=== PATIENT | female | born 1965 | race Caucasian/White ===

== ENCOUNTER 2017-05-24 06:49 | Observation (INO) | payer BC ==
--- NOTE | 2017-05-24 07:09 | ER Document Report ---
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 She is also having mild shortness of breath during this episode. Patient said the chest tightness started when she was at rest and is constant. She has never had this before. She denies back pain, syncope, leg swelling, hemoptysis, cough, fevers, rash, abdominal pain, nausea, vomiting or radiation of pain. TRAVEL OUTSIDE OF THE [place] IN LAST 30 DAYS: No - Related Data Allergies/Adverse Reactions: No Known Allergies Allergy (Unverified 12/16/11 21:42) Past Medical History - General Information source: Patient - Social History Smoking Status: Unknown if Ever Smoked Family History: CAD, Hypertension - Past Medical History Cardiac Medical History: Reports: Hx Congestive Heart Failure, Hx Heart Attack, Hx Hypercholesterolemia, Hx Hypertension Pulmonary Medical History: Reports: Hx Asthma, Hx COPD, Hx Pneumonia Neurological Medical History: Reports: Hx Migraine, Hx Seizures Musculoskeltal Medical History: Reports Hx Fibromyalgia Psychiatric Medical History: Reports: Hx Depression Past Surgical History: Reports: Hx Section, Hx Orthopedic Surgery, Hx Tubal Ligation - Immunizations Hx Diphtheria, Pertussis, Tetanus Vaccination: Yes Hx Pneumococcal Vaccination: 11/02/13 Review of Systems - Review of Systems Notes: REVIEW OF SYSTEMS: CONSTITUTIONAL: -fevers, -chills EENT: -eye pain, -difficulty swallowing, -nasal congestion CARDIOVASCULAR: +chest pain, -syncope. RESPIRATORY: -cough, +SOB GASTROINTESTINAL: -abdominal pain, -nausea, -vomiting, -diarrhea GENITOURINARY: -dysuria, -hematuria MUSCULOSKELETAL: -back pain, -neck pain SKIN: -rash or skin lesions. HEMATOLOGIC: -easy bruising or bleeding. LYMPHATIC: -swollen, enlarged glands. NEUROLOGICAL: -altered mental status or loss of consciousness, -headache, - neurologic symptoms PSYCHIATRIC: -anxiety, -depression. ALL OTHER SYSTEMS REVIEWED AND NEGATIVE. Physical Exam - Vital signs Vitals: Resp BP Pulse Ox 13 183/118 H 98 05/24/17 07:05 05/24/17 07:05 05/24/17 07:05 - Notes Notes: PHYSICAL EXAMINATION: GENERAL: Well-appearing, well-nourished and in no acute distress. HEAD: Atraumatic, normocephalic. EYES: Pupils equal round and reactive to light, extraocular movements intact, sclera anicteric, conjunctiva are normal. ENT: nares patent, oropharynx clear without exudates. Moist mucous membranes. NECK: Normal range of motion, supple without lymphadenopathy LUNGS: Mild end-expiratory wheeze in left lower lung field. No respiratory distress. HEART: Regular rate and rhythm without murmurs ABDOMEN: Soft, nontender, normoactive bowel sounds. No guarding, no rebound. No masses appreciated. EXTREMITIES: Normal range of motion, no pitting or edema. No cyanosis. NEUROLOGICAL: Cranial nerves grossly intact. Normal speech, normal gait. Normal sensory and motor exams. PSYCH: Normal mood, normal affect. SKIN: Warm, Dry, normal turgor, no rashes or lesions noted. Course - Re-evaluation Re-evalutation: Pt with 2 days of chest tightness. Her last stress test was 3 years ago. There are new ST depressions in the inferior and lateral leads compared to her EKG 4 years ago. After SL Nitro, she feels much better and her chest pain has resolved. Pt's HEART score is 7 (2 for suspicious story, [address] depressions on EKG, 1 for age, 2 for risk factors, 0 for troponin). She is already anticoagulated due to her factor II deficiency. Her symptoms are atypical for PE or aortic dissection at this time. Her primary care physician is Dr. Santana her last stress test was 3 years ago. Pt requires observation for further evaluation and treatment of her chest pain. 05/24/17 09:[address] Beavers and will admit patient to Tele Obs for further evaluation. - Vital Signs Vital signs: Temp Pulse Resp BP Pulse Ox 15 133/94 H 97 05/24/17 08:01 05/24/17 08:01 05/24/17 08:01 - Laboratory Result Diagrams: 05/24/17 07:05 05/24/17 07:05 Laboratory results interpreted by me: 05/24/17 05/24/17 07:05 07:05 PT 28.3 H APTT 54.0 H Sodium 145.3 H Chloride 111 H Est GFR (Non-Af Amer) 58 L Creatine Kinase 146 H - Diagnostic Test Radiology reviewed: Image reviewed, Reports reviewed Radiology results interpreted by me: CXR: Cardiomegaly, NAD - EKG Interpretation by Me EKG shows normal: Sinus rhythm, [place], Intervals, QRS Complexes, ST-T Waves - No STEMI When compared to previous EKG there are: Changes noted Additional EKG results interpreted by me: New ST depressions in II, III, aVF, V5 and V6 Discharge - Discharge Clinical Impression: Chest pain Qualifiers: Chest pain type: unspecified Qualified Code(s): R07.9 - Chest pain, unspecified HTN (hypertension) Qualifiers: Hypertension type: unspecified Qualified Code(s): I10 - Essential (primary) hypertension Condition: Stable Disposition: ADMITTED OBSERVATION Admitting Provider: Hospitalist - [facility] Unit Admitted: Telemetry Referrals: GAGE MATOS MD [Primary Care Provider] - Follow up as needed
[2017-05-24] MEDS ORDERED: NITROGLYCERIN 0.4 MG/TAB 25 TAB/BOTTLE SL PRN (07:16)
[2017-05-24] MEDS ORDERED: ASPIRIN 325 MG TABLET PO ONE (07:16)
[2017-05-24] MEDS ORDERED: IPRATROPIUM/ALBUTEROL 0.5-2.5 MG/3 ML AMPUL NEB ONE (07:16)
[2017-05-24 07:20] LABS: ABSOLUTE BASOPHILS # (AUTO) 0.1 10^3/uL (0.0-0.2); ABSOLUTE EOSINOPHILS # (AUTO) 0.3 10^3/uL (0.0-0.6); ABSOLUTE LYMPHOCYTES (AUTO) 2.2 10^3/uL (0.5-4.7); ABSOLUTE MONOCYTES (AUTO) 0.8 10^3/uL (0.1-1.4); ABSOLUTE NEUT (AUTO) 6.4 10^3/uL (1.7-8.2); BASOPHILS % (AUTO) 0.8 % (0-2); HEMATOCRIT 41.9 % (36.0-47.0); HEMOGLOBIN 14.2 g/dL (12.0-15.5); LYMPHOCYTES % (AUTO) 22.5 % (13-45); MEAN CORPUSCULAR HEMOGLOBIN 28.1 pg (27.0-33.4); MEAN CORPUSCULAR HGB CONC 33.9 g/dL (32.0-36.0); MEAN CORPUSCULAR VOLUME 83 fl (80-97); MONOCYTES % (AUTO) 7.9 % (3-13); PLATELET COUNT 308 10^3/uL (150-450); RED BLOOD COUNT 5.06 10^6/uL (3.72-5.28); RED CELL DISTRIBUTION WIDTH 13.9 % (11.5-14.0); SEGMENTED NEUTROPHILS % (AUTO) 65.8 % (42-78); TOTAL CELLS COUNTED % (AUTO) 100 %; WHITE BLOOD COUNT 9.7 10^3/uL (4.0-10.5)
--- NOTE | 2017-05-24 07:32 | RADIOLOGY REPORT (SQ) ---
EXAM DESCRIPTION: CHEST PA/LAT CLINICAL HISTORY: chest pain, SOB COMPARISON: 10/31/2013 FINDINGS: Frontal and lateral views of the chest. Tortuosity of the thoracic aorta. Cardiomegaly. Low lung volumes. No consolidation, pneumothorax, or pleural effusion. Degenerative change of the spine. No acute osseous abnormalities. Leads overlie the chest. Upper abdominal soft tissues are unremarkable. IMPRESSION: 1. No acute pulmonary process identified. Cardiomegaly
[2017-05-24 07:38] LABS: ALANINE AMINOTRANSFERASE 32 U/L (9-52); ALBUMIN 4.2 g/dL (3.5-5.0); ALKALINE PHOSPHATASE 48 U/L (38-126); ANION GAP 10 (5-19); ASPARTATE AMINO TRANSFERASE 29 U/L (14-36); BILIRUBIN,DIRECT 0.4 mg/dL (0.0-0.4); BILIRUBIN,TOTAL 0.4 mg/dL (0.2-1.3); BLOOD UREA NITROGEN 12 mg/dL (7-20); CALCIUM 9.5 mg/dL (8.4-10.2); CARBON DIOXIDE 24 mmol/L (22-30); CHLORIDE 111 mmol/L (98-107); CREATINE KINASE 146 U/L (30-135); GLUCOSE 100 mg/dL (75-110); LIPASE 296.8 U/L (23-300); POTASSIUM 3.8 mmol/L (3.6-5.0); SODIUM 145.3 mmol/L (137-145); TOTAL PROTEIN 7.6 g/dL (6.3-8.2)
[2017-05-24 07:46] LABS: PROTHROMBIN TIME 28.3 SEC (11.4-15.4)
--- NOTE | 2017-05-24 09:02 | EKG REPORT ---
SEVERITY:- ABNORMAL ECG - SINUS RHYTHM CONSIDER LEFT VENTRICULAR HYPERTROPHY BORDERLINE T ABNORMALITIES, INFERIOR LEADS NONSPECIFIC ST-T CHANGES : Confirmed by: Nunu Briggs 24-May-2017 09:01:24
[2017-05-24] MEDS ORDERED: ALBUTEROL SULFATE HFA (90 MCG/PUFF) 8 GM MDI (1 MDI/ER DISP) IH PRN (13:03)
--- NOTE | 2017-05-24 13:18 | PDOC H&P ---
History of Present Illness Admission Date/PCP: 05/24/17 09:14 GAGE MATOS MD Patient complains of: chest pain History of Present Illness: KAMARI BOONE is a 51 year old female with history of HTN, pulmonary HTN, CHF, and 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 She was states over the weekend she was in normal health. However while at work on Monday 05/22, she noted that her blood pressure was more elevated than normal. She developed mid-sternal chest pain, SOB, diaphoresis, and headaches. Symptoms have persistent over the last two days. States chest pain occurs at rest and is not related with exertion. Denies fevers, chills, abdominal pain, NV. No sick contacts. She does have a history of HTN and is a current smoker. States that she has had a left heart cath in 2008 in [place] following an episode of chest pain. States was negative and no stents were placed. She also had stress test 3 years ago which was reportedly normal. In [facility] ED, she received nitro with improvement in her CP. Currently states that she is feeling overall well. Of note, she denies focal weakness. However feels that she is not thinking as clear as normal. Admitted to hospitalist for observation and further cardiac work up. Past Medical History Cardiac Medical History: Reports: Congestive Heart Failure, Myocardial Infarction, Hyperlipidema, Hypertension Pulmonary Medical History: Reports: Asthma, Chronic Obstructive Pulmonary Disease (COPD), Pneumonia Neurological Medical History: Reports: Migraine, Seizures, Other - Noted to have TIAs in past, first was in her 20s Musculoskeltal Medical History: Reports: Fibromyalgia Psychiatric Medical History: Reports: Depression Past Surgical History Past Surgical History: Reports: Section, Orthopedic Surgery, Tubal Ligation Social History Information Source: Patient Occupation: Works for manager [employer] Smoking Status: Current Every Day Smoker Cigarettes Packs Per Day: 0.5 Frequency of Alcohol Use: None Hx Recreational Drug Use: No Drugs: None Hx Prescription Drug Abuse: No Family History Family History: CAD, Hypertension Parental Family History Reviewed: Yes - Father: HTN, older sister: HTN Children Family History Reviewed: No Sibling(s) Family History Reviewed.: Yes Medication/Allergy Home Medications: Albuterol Sulfate [Proair HFA] 2 puff IH Q4HP PRN 05/24/17 Carvedilol [Coreg 25 mg Tablet] 1 tab PO Q12 05/24/17 Eszopiclone [Lunesta] 3 mg PO HSP PRN 05/24/17 Gabapentin [Neurontin 300 mg Capsule] 300 mg PO BID 05/24/17 Lisinopril [Prinivil 5 mg Tablet] 5 mg PO DAILY 05/24/17 Mometasone Furoate [Nasonex] 2 spray NS Q12 05/24/17 Mometasone/Formoterol [Dulera 100 Mcg/5 Mcg Inhaler] 2 puff IH DAILY 05/24/17 Naproxen [Naprosyn] 500 mg PO DAILYP PRN 05/24/17 Nebivolol HCl [Bystolic] 20 mg PO DAILY 05/24/17 Potassium Chloride [Klor-Con M20] 20 meq PO DAILY 05/24/17 Pramipexole Di-HCl [Mirapex 0.5 Mg Tablet] 0.5 mg PO QHS 05/24/17 Pravastatin Sodium [Pravachol] 10 mg PO QHS 05/24/17 Ranitidine HCl [Zantac 150 mg Tablet] 150 mg PO DAILYP PRN 05/24/17 Tizanidine HCl [Zanaflex 4 Mg Tablet] 4 mg PO QHS 05/24/17 Topiramate [Topamax 100 Mg Tablet] 100 mg PO QHS 05/24/17 Topiramate [Topamax] 50 mg PO DAILY 05/24/17 Venlafaxine HCl ER [Effexor Xr 75 mg Cap.sr] 75 mg PO DAILY 05/24/17 Venlafaxine HCl [Effexor Xr] 150 mg PO DAILY 05/24/17 Warfarin Sodium [Coumadin 4 mg Tablet] 4 mg PO TUTHSA@219905/24/17 Warfarin Sodium [Coumadin 5 mg Tablet] 5 mg PO SUMOWEFR@219905/24/17 Allergies/Adverse Reactions: No Known Allergies Allergy (Unverified 12/16/11 21:42) Review of Systems All systems: reviewed and no additional remarkable complaints except as stated Physical Exam Vital Signs: Temp Pulse Resp BP Pulse Ox 16 150/90 H 93 05/24/17 10:31 05/24/17 09:31 05/24/17 10:31 Intake & Output 05/23/17 05/24/17 05/25/17 06:59 06:59 06:59 Weight 117 kg General appearance: PRESENT: no acute distress, cooperative, morbidly obese Head exam: PRESENT: atraumatic, normocephalic Mouth exam: PRESENT: moist Neck exam: ABSENT: JVD Respiratory exam: PRESENT: clear to auscultation mary, unlabored Cardiovascular exam: PRESENT: RRR, +S1, +S2 GI/Abdominal exam: PRESENT: soft. ABSENT: firm, tenderness Rectal exam: PRESENT: deferred Musculoskeletal exam: PRESENT: full ROM Neurological exam: PRESENT: alert, awake, CN II-XII grossly intact. ABSENT: aphasic Psychiatric exam: PRESENT: appropriate affect, normal mood Skin exam: PRESENT: dry, warm Results Laboratory Results: 05/24/17 05/24/17 07:05 07:05 PT 28.3 H APTT 54.0 H Sodium 145.3 H Chloride 111 H Est GFR (Non-Af Amer) 58 L Creatine Kinase 146 H Troponin: negative EKG Comments: Sinus, LVH, Inferior lead depression Impressions: Chest X-Ray 05/24/17 06:58 IMPRESSION: 1. No acute pulmonary process identified. Cardiomegaly Assessment & Plan - Diagnosis (1) Chest pain Qualifiers: Chest pain type: other chest pain Qualified Code(s): R07.89 - Other chest pain; R07.8 - Other chest pain Is this a current diagnosis for this admission?: Yes Plan: Acute onset chest pain, risk factors include age, smoking, obesity, HTN. Chest pain was midsternal and relieved with nitro. New ST depressions noted in inferior lead. Troponin not elevated at initial check. Has had cardiac cath in 2008 and stress test in 2014, which were both negative - ASA 325mg * 1 dose followed by ASA 81 - Patient is already anticoagulated on Warfarin - Will obtain lipid profile for risk stratification, should likely be on high intensity statin - Ordered nuclear stress test - Consulted cardiology, case discussed with Dr. Briggs - Admit to tele obs unit (2) HTN (hypertension) Qualifiers: Hypertension type: essential hypertension Qualified Code(s): I10 - Essential (primary) hypertension Is this a current diagnosis for this admission?: Yes Plan: Blood pressure has been elevated over last 2 days. Per patient, checks BP at home and usually 120/80s - On good outpatient regimen including Lisinopri 5mg, Coreg 25mg BID - Noted to be on bystolic at home as well. Unclear if she is also taking this in addition to Coreg - If BP's remain elevated, will add PRN IV and adjust home meds (3) CAD (coronary artery disease) Qualifiers: Coronary Disease-Associated Artery/Lesion type: [place] artery [place] vs. transplanted heart: [place] heart Associated angina: angina presence unspecified Qualified Code(s): I25.10 - Atherosclerotic heart disease of [place] coronary artery without angina pectoris Is this a current diagnosis for this admission?: No Plan: History of CAD, per above (4) CHF (congestive heart failure) Qualifiers: Heart failure type: unspecified Heart failure chronicity: chronic Qualified Code(s): I50.9 - Heart failure, unspecified Is this a current diagnosis for this admission?: No Plan: Known history of CHF, however TTE report not available - On appropriate outpatient medical regimen - Continue home meds - Does not appear to be acute CHF exacerbation (5) Factor II deficiency Is this a current diagnosis for this admission?: No Plan: Chronic, on Warfarin at home, continue - Check INR in AM - Time Time Spent: Greater than 70 Minutes Critical Time spent with patient: Less than 15 minutes Smoking Cessation Education: 3 to 10 minutes Medications reviewed and adjusted accordingly: Yes Anticipated discharge: Home Within: within 48 hours
[2017-05-24] MEDS ORDERED: AMINOPHYLLINE INJ/PF 250 MG/10 ML SDV IV ONE (15:06)
[2017-05-24] MEDS ORDERED: REGADENOSON INJ 0.4 MG/5 ML DISP.SYRIN IV ONE (15:06)
[2017-05-24] MEDS ORDERED: HYDRALAZINE HCL INJ/PF 20 MG/1 ML SDV IV PRN (15:59)
[2017-05-24] MEDS ORDERED: (PENDING PHARMACY ID) (Naproxen [Naprosyn] 500 MG) PO PRN (16:01)
[2017-05-24] MEDS ORDERED: NAPROXEN 250 MG TABLET PO PRN (16:14)
[2017-05-24] MEDS: GABAPENTIN 300 MG CAPSULE PO SCH (17:06)
[2017-05-24] MEDS ORDERED: NICOTINE 14 MG/24 HR PATCH.TD24 TD SCH (18:00)
--- NOTE | 2017-05-24 20:09 | PDOC CONSULTATION ---
Consultation Consult Date: 05/24/17 Attending physician:: KAMI YAN Consult reason:: Chest pain History of Present Illness Admission Date/PCP: 05/24/17 09:14 GAGE MATOS MD Patient complains of: Chest pain History of Present Illness: KAMARI BOONE is a 51 year old female with history of HTN, pulmonary HTN, CHF, and 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 She was states over the weekend she was in normal health. However while at work on Monday 05/22, she noted that her blood pressure was more elevated than normal. She developed mid-sternal chest pain, SOB, diaphoresis, and headaches. Symptoms have persistent over the last two days. States chest pain occurs at rest and is not related with exertion. Denies fevers, chills, abdominal pain, NV. No sick contacts. She does have a history of HTN and is a current smoker. States that she has had a left heart cath in 2008 in [place] following an episode of chest pain. States was negative and no stents were placed. She also had stress test 3 years ago which was reportedly normal. In [facility] BEDS AT THE [facility] ED, she received nitro with improvement in her CP. Currently states that she is feeling overall well. Of note, she denies focal weakness. However feels that she is not thinking as clear as normal. Admitted to hospitalist for observation and further cardiac work up. This history was reviewed and confirmed. Patient currently chest pain-free. Patient denies any significant exertional component to the chest pain. Patient does suffer from acid reflux. Patient denies any history of anxiety panic disorder. Patient does have history of thrombotic disorder. Past Medical History Cardiac Medical History: Reports: Congestive Heart Failure, Myocardial Infarction, Hyperlipidema, Hypertension Pulmonary Medical History: Reports: Asthma, Chronic Obstructive Pulmonary Disease (COPD), Pneumonia Neurological Medical History: Reports: Migraine, Seizures - last seizure 8-9 years ago, Other - Noted to have TIAs in past, first was in her 20s Musculoskeltal Medical History: Reports: Fibromyalgia Psychiatric Medical History: Reports: Depression Past Surgical History Past Surgical History: Reports: Section, Orthopedic Surgery, Tubal Ligation Social History Information Source: Patient Smoking Status: Current Every Day Smoker Cigarettes Packs Per Day: 0.5 Frequency of Alcohol Use: None Hx Recreational Drug Use: No Drugs: None Hx Prescription Drug Abuse: No - Advance Directive Resuscitation Status: Full Code Surrogate healthcare decision maker:: Patient's Family History Family History: CAD, Hypertension Parental Family History Reviewed: Yes Children Family History Reviewed: Yes Sibling(s) Family History Reviewed.: Yes Medication/Allergy Home Medications: Albuterol Sulfate [Proair HFA] 2 puff IH Q4HP PRN 05/24/17 Carvedilol [Coreg 25 mg Tablet] 1 tab PO Q12 05/24/17 Eszopiclone [Lunesta] 3 mg PO HSP PRN 05/24/17 Gabapentin [Neurontin 300 mg Capsule] 300 mg PO BID 05/24/17 Lisinopril [Prinivil 5 mg Tablet] 5 mg PO DAILY 05/24/17 Mometasone Furoate [Nasonex] 2 spray NS Q12 05/24/17 Mometasone/Formoterol [Dulera 100 Mcg/5 Mcg Inhaler] 2 puff IH DAILY 05/24/17 Naproxen [Naprosyn] 500 mg PO DAILYP PRN 05/24/17 Nebivolol HCl [Bystolic] 20 mg PO DAILY 05/24/17 Potassium Chloride [Klor-Con M20] 20 meq PO DAILY 05/24/17 Pramipexole Di-HCl [Mirapex 0.5 Mg Tablet] 0.5 mg PO QHS 05/24/17 Pravastatin Sodium [Pravachol] 10 mg PO QHS 05/24/17 Ranitidine HCl [Zantac 150 mg Tablet] 150 mg PO DAILYP PRN 05/24/17 Tizanidine HCl [Zanaflex 4 Mg Tablet] 4 mg PO QHS 05/24/17 Topiramate [Topamax 100 Mg Tablet] 100 mg PO QHS 05/24/17 Topiramate [Topamax] 50 mg PO DAILY 05/24/17 Venlafaxine HCl ER [Effexor Xr 75 mg Cap.sr] 75 mg PO DAILY 05/24/17 Venlafaxine HCl [Effexor Xr] 150 mg PO DAILY 05/24/17 Warfarin Sodium [Coumadin 4 mg Tablet] 4 mg PO TUTHSA@219905/24/17 Warfarin Sodium [Coumadin 5 mg Tablet] 5 mg PO SUMOWEFR@219905/24/17 Allergies/Adverse Reactions: No Known Allergies Allergy (Unverified 10/12/12 21:42) Review of Systems Review of Systems: Please see history of present illness and past medical history as wall. Constitutional: No fever or chills reported. Head : No recent chronic headaches, recent head injury. Eyes: No recent eye pain, diplopia, redness, discharge, acute visual changes. Ears: No recent chronic ear pain, acute hearing loss, ear discharge. Oral cavity: No recent ulcerations, bleeding, oral cavity discomfort. Neck: No recent acute neck pain reported. Hematologic: No recent easy bruising or bleeding or hematologic malignancy reported. Lymphatic: No recent lymphatic malignancy, chronic lymphadenopathy reported yet Cardiovascular system review: See history of present illness. Respiratory system review: No recent chronic cough, hemoptysis, blood clots in the lungs reported. Mild Shortness of breath on exertion Gastrointestinal system review: Negative for any recent acute or chronic abdominal pain, hematemesis, melena, recent change in bowel habits. Genitourinary system review: No recent acute or chronic hematuria, flank pain, UTI etc. reported. Skin system review: Negative for any recent abnormal bruising, no rash, no pruritus reported. Neurologic: No prior history of strokes, mini strokes, seizure disorder. Psychologic: No history of major psychosis or major depression reported. Musculoskeletal: Minor aches and pains reported. No acute joint swelling reported. Endocrine: No recent polyuria, polydipsia, recent heat or cold intolerance. Physical Exam Vital Signs: Temp Pulse Resp BP Pulse Ox 97.7 F 80 12 156/83 H 100 05/24/17 15:28 05/24/17 19:00 05/24/17 15:28 05/24/17 15:28 05/24/17 15:28 Intake & Output 05/23/17 05/24/17 05/25/17 06:59 06:59 06:59 Weight 121 kg Exam: GENERAL: well-nourished and in no acute distress. Alert and oriented x3 HEAD: Atraumatic, normocephalic. EYES: Pupils equal round and reactive to light, extraocular movements intact, sclera anicteric, conjunctiva are normal. ENT: TMs normal, nares patent, oropharynx clear without exudates. Moist mucous membranes. No oral ulcerations or bleeding gums noted NECK: supple without lymphadenopathy. Trachea is central. No cervical or axillary lymphadenopathy noted. Carotids are 2+, JVD WNL LUNGS: Respiration seems nonlabored, no significant accessory muscle action noted. Breath sounds clear to auscultation bilaterally and equal noted. No wheezes rales or rhonchi noted. No significant dullness noted on percussion. CHEST: Palpation of the chest wall shows no significant chest wall tenderness. No other significant abnormalities noted. 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 ABDOMEN: Soft, no significant tenderness appreciated, normoactive bowel sounds. No guarding, no rebound. No rigidity noted . No masses appreciated. EXTREMITIES: Pedal pulses are 1-2+, no calf tenderness noted. No clubbing or cyanosis.trace to 1+ pedal edema noted NEUROLOGICAL: Focused neurological exam showed no significant neurologic deficit. Normal speech, no focal weakness appreciated. PSYCH: Normal mood, normal affect. Judgment and insight within normal limits. SKIN: No significant ecchymosis, skin is noted to be warm. MUSCULOSKELETAL EXAM: No significant acute joint swelling noted. Results Laboratory Results: 05/24/17 12:23 Troponin I < 0.012 EKG Comments: Sinus rhythm, minor nonspecific ST segment changes noted. Impressions: Chest X-Ray 05/24/17 06:58 IMPRESSION: 1. No acute pulmonary process identified. Cardiomegaly Assessment & Plan - Diagnosis (1) Chest pain Qualifiers: Chest pain type: other chest pain Qualified Code(s): R07.89 - Other chest pain; R07.8 - Other chest pain Is this a current diagnosis for this admission?: Yes (2) HTN (hypertension) Qualifiers: Hypertension type: essential hypertension Qualified Code(s): I10 - Essential (primary) hypertension Is this a current diagnosis for this admission?: Yes (4) Factor II deficiency Is this a current diagnosis for this admission?: Yes (5) GERD (gastroesophageal reflux disease) Qualifiers: Esophagitis presence: esophagitis presence not specified Qualified Code(s) : K21.9 - Gastro-esophageal reflux disease without esophagitis Is this a current diagnosis for this admission?: Yes (6) Mitral valve disease Is this a current diagnosis for this admission?: Yes - Notes Notes: Chest pain: There are multiple differential diagnosis in this patient. This could include cardiac ischemic discomfort, gastroesophageal reflux with distal esophagitis, anxiety panic disorder, pulmonary embolism, other causes. At this point agree with the GA rule out protocol. Will order a 2D echo to look for any mitral valve disease and also evaluate dyspnea. A nuclear stress test has been scheduled. Will recommend ruling out pulmonary embolism etc. since patient has hypercoagulable disorder with factor II deficiency. Today however PT with INR is in the satisfactory range. Hypertension: Blood pressure goal in this young lady would be 135/85 or less. Continue current antihypertensive therapy. Anxiety disorder: Currently stable. Gastroesophageal reflux disorder: Recommend double dose proton pump inhibitor. Mitral valve disease: Patient gives a history of this. To be evaluated further with a 2D echocardiogram. Further plans after above scheduled tests are completed. - Time Time Spent: 30 to 50 Minutes - CODE STATUS was discussed, patient remains full code. Surrogate decision-maker unchanged. Multiple medical problems were addressed. More than 50% of the time spent coordinating care, discussing management plans with involved caregivers. Management plans discussed with involved personnels. Medical decision making was of moderate to high complexity , patient's has multiple comorbidities. Medications reviewed and adjusted accordingly: Yes
[2017-05-24] MEDS ORDERED: (PENDING PHARMACY ID) (Carvedilol [Coreg 25 Mg Tablet] 1 TAB) PO SCH (22:00)
[2017-05-24] MEDS ORDERED: TOPIRAMATE 100 MG TABLET PO SCH (22:00)
[2017-05-24] MEDS ORDERED: (PENDING PHARMACY ID) (Warfarin Sodium 5 MG) PO SCH (22:00)
[2017-05-24] MEDS ORDERED: TIZANIDINE HCL 4 MG TABLET PO SCH (22:00)
[2017-05-24] MEDS ORDERED: WARFARIN SODIUM 5 MG TABLET PO SCH (22:00)
[2017-05-24] MEDS ORDERED: ATORVASTATIN CALCIUM 40 MG TABLET PO SCH (22:00)
[2017-05-24] MEDS: CARVEDILOL 12.5 MG TABLET PO SCH (22:10)
[2017-05-24] MEDS ORDERED: ZOLPIDEM TARTRATE 5 MG TABLET PO PRN (23:02)
[2017-05-24] MEDS ORDERED: PRAMIPEXOLE DI-HCL 0.5 MG TABLET PO SCH (23:15)
[2017-05-24] MEDS ORDERED: PRAMIPEXOLE DI-HCL 0.5 MG TABLET PO ONE (23:15)
[2017-05-24] MEDS ORDERED: PRAMIPEXOLE DI-HCL 0.5 MG TABLET ONE (23:25)
[2017-05-25 05:59] LABS: HEMATOCRIT 40.5 % (36.0-47.0); HEMOGLOBIN 13.5 g/dL (12.0-15.5); MEAN CORPUSCULAR HEMOGLOBIN 27.8 pg (27.0-33.4); MEAN CORPUSCULAR HGB CONC 33.4 g/dL (32.0-36.0); MEAN CORPUSCULAR VOLUME 83 fl (80-97); PLATELET COUNT 288 10^3/uL (150-450); RED BLOOD COUNT 4.87 10^6/uL (3.72-5.28); RED CELL DISTRIBUTION WIDTH 14.3 % (11.5-14.0); WHITE BLOOD COUNT 7.5 10^3/uL (4.0-10.5)
[2017-05-25 06:25] LABS: ANION GAP 12 (5-19); BLOOD UREA NITROGEN 17 mg/dL (7-20); CALCIUM 9.2 mg/dL (8.4-10.2); CARBON DIOXIDE 22 mmol/L (22-30); CHLORIDE 109 mmol/L (98-107); GLUCOSE 100 mg/dL (75-110); POTASSIUM 4.2 mmol/L (3.6-5.0); SODIUM 143.3 mmol/L (137-145)
[2017-05-25 06:30] LABS: INTERNATIONAL RATION (INR) 2.54; PROTHROMBIN TIME 28.6 SEC (11.4-15.4)
[2017-05-25 06:53] LABS: TRIGLYCERIDES 290 mg/dL (<150)
[2017-05-25 07:05] LABS: DIRECT LDL 94 mg/dL (<100)
--- NOTE | 2017-05-25 09:12 | EKG REPORT ---
SEVERITY:- ABNORMAL ECG - SINUS RHYTHM CONSIDER LEFT VENTRICULAR HYPERTROPHY BORDERLINE T ABNORMALITIES, INFERIOR LEADS : Confirmed by: Nunu Briggs 25-May-2017 09:11:43
[2017-05-25] MEDS ORDERED: (PENDING PHARMACY ID) (Nebivolol Hcl [Bystolic] 20 MG) PO SCH (10:00)
[2017-05-25] MEDS ORDERED: VENLAFAXINE HCL 75 MG CAP.SR.24H PO SCH ×2 (10:00)
[2017-05-25] MEDS ORDERED: LISINOPRIL 5 MG TABLET PO SCH (10:00)
[2017-05-25] MEDS ORDERED: ASPIRIN 81 MG TABLET, CHEWABLE PO SCH (10:00)
[2017-05-25] MEDS ORDERED: TOPIRAMATE 100 MG TABLET PO SCH (10:00)
[2017-05-25] MEDS: CARVEDILOL 12.5 MG TABLET PO SCH (11:51)
[2017-05-25] MEDS: GABAPENTIN 300 MG CAPSULE PO SCH (11:53)
--- NOTE | 2017-05-25 12:13 | DRAGON STRESS TEST REPORT ---
INTRAVENOUS LEXISCAN CARDIOLITE STRESS TEST USING SINGLE PHOTON EMMISION COMPUTERIZED TOMOGRAPHIC. DATE OF PROCEDURE: May 25, 2017, INDICATION : Chest pain CARDIAC RISK FACTORS: Hypertension, dyslipidemia, family history of CAD RESTING EKG: Sinus rhythm with minor nonspecific ST segment changes STRESS EKG: No significant ST segment changes noted with LexiScan bolus REASON FOR TERMINATION: Protocol. PROCEDURE REPORT: Baseline heart rate 68 beats per minute with blood pressure of 144/93. Patient had no significant complaints. Patient was bolused with Lexiscan 0.4 mg intravenously followed by saline bolus. Heart rate at 2 minutes post bolus 94 with a blood pressure of 148/90. 3 minutes post bolus heart rate 85 with blood pressure of 165/96. No significant EKG changes were noted. Patient had no significant complaints during the procedure or postprocedure. Patient injected with Aminophyllin 75 mg at 3 minutes or later after Lexiscan bolus. CONCLUSIONS: Normal EKG and hemodynamic response to IV LexiScan. NUCLEAR DATA: At rest the patient was given 15.69 millicuries of technetium 99 sestamibi injected intravenously. As per protocol rest gated SPECT images were obtained. On day of stress test, the patient was given intravenous LexiScan at a dose of 0.4 mg in 5 mL intravenously, followed by flush with normal saline. Subsequently the stress dose of 45.1 millicuries of technetium 99 sestamibi was injected intravenously. As per protocol stress gated images were obtained. NUCLEAR INTERPRETATION: Both raw and processed data were used for interpretation. Visual, qualitative, computer-generated quantitative data was used. There was good myocardial uptake of technetium compound. Motion artifact and soft tissue attenuations were noted. Increased visceral uptake was noted. No definitive areas of transient perfusion defect noted, No definitive areas of fixed perfusion defect or scars noted. Mild decreased uptake noted in the distal and mid anterior wall but is felt to be all related to breast attenuation artifact as no corresponding regional wall motion normality's were noted on gated imaging. However an area of mild ischemia mild fixed defect cannot be entirely ruled out. EKG gated imaging showed LV EF at 63 %, rest and stress gated EF similar visually. T. I D. ratio was 1.07. Lung heart ratio noted to be within normal limits 0.31. No significant extracardiac and abnormal radiotracer activities were noted. RV free wall uptake was noted to be WNL. IMPRESSION: Also refer to comments under nuclear interpretation. Also test results needs to be interpreted in the context of pretest probability. 1. No definitive areas of transient perfusion defect noted. 2. There is no definitive scintigraphic evidence of myocardial infarction/scar. 3. EKG gated imaging shows left ventricular ejection fraction of approx. 63 %. 4. Clinical correlation requested as occasionally single vessel disease or balanced ischemia could be missed. In approximately 10% of the cases Lexiscan may not cause adequate vasodilatory stress. RECOMMENDATIONS: Aggressive risk factor modification and medical management. Further evaluation may be needed if continued symptoms or other high risk indicators are noted on clinical evaluation. Close cardiology follow-up is also recommended. Clinical correlation with echocardiogram derived ejection fraction. Inability to exercise by itself can lead to increased cardiovascular event risks. Consider cardiology consultation and or follow-up if clinically indicated. I am available for cardiology evaluation and consultation if requested by the director of primary, unless patient already has a rag sorter and cutter. ROYA
--- NOTE | 2017-05-25 12:50 | XCELERA REPORT ---
[address] [address] Transthoracic Echocardiogram Report Name: KAMARI BOONE Age: 51 yrs Gender: Female : 1965 Patient Status: Inpatient Patient Location: [address] [place] [address] Study Date: 05/25/2017 09:17 AM Height: 63 in Weight: 266 lb BSA: 2.2 m2 Procedure: A complete two-dimensional transthoracic echocardiogram was performed (2D, M-mode, spectral and color flow Doppler). The study was technically adequate with some images being suboptimal in quality. Reason For Study: Chest pain Ordering Physician: NUNU MORENO Performed By: Agustín Perez Interpretation Summary The left ventricular ejection fraction is normal. There is borderline concentric left ventricular hypertrophy. Doppler measurements suggest impaired left ventricular relaxation, which is associated with grade I/IV or mild diastolic dysfunction The left ventricle is grossly normal size. No regional wall motion abnormalities noted. Borderline right ventricular enlargement. The right ventricular systolic function is normal. The left atrium is moderately dilated. The right atrium is mildly dilated. There is a mild amount of mitral regurgitation There is no mitral valve stenosis. There is no aortic valve stenosis No aortic regurgitation is present. There is no tricuspid stenosis. No tricuspid regurgitation. The aortic root is not well visualized but is probably normal size. The inferior vena cava was not visualized There is no pericardial effusion. MMode/2D Measurements & Calculations RVDd: 3.6 cm LVIDd: 5.6 cm FS: 39.2 % Ao root diam: 3.0 cm IVSd: 0.73 cm LVIDs: 3.4 cm EDV(Teich): 154.9 ml LVPWd: 0.66 cm ESV(Teich): 47.9 ml Ao root area: 7.2 cm2 EF(Teich): 69.1 % Doppler Measurements & Calculations MV E max lina: MV dec slope: Ao V2 max: LV V1 max P.6 cm/sec 154.5 cm/sec 3.6 mmHg MV A max lina: 253.8 cm/sec2 Ao max PG: LV V1 max: 96.8 cm/sec MV dec time: 9.5 mmHg 94.9 cm/sec MV E/A: 0.76 0.29 sec PA V2 max: TR max lina: 99.4 cm/sec 172.5 cm/sec PA max PG: TR max P.9 mmHg 3.9 mmHg Left Ventricle The left ventricle is grossly normal size. There is borderline concentric left ventricular hypertrophy. The left ventricular ejection fraction is normal. Doppler measurements suggest impaired left ventricular relaxation, which is associated with grade I/IV or mild diastolic dysfunction. No regional wall motion abnormalities noted. Right Ventricle Borderline right ventricular enlargement. There is normal right ventricular wall thickness. The right ventricular systolic function is normal. Atria The right atrium is mildly dilated. The left atrium is moderately dilated. Interarterial septum not well visualized and not well dopplered. Cannot comment on ASD/PFO presence. Mitral Valve The mitral valve is grossly normal. There is no mitral valve stenosis. There is a mild amount of mitral regurgitation. Aortic Valve The aortic valve is not well visualized secondary to technical limitations. There is no aortic valve stenosis. No aortic regurgitation is present. Tricuspid Valve The tricuspid valve is not well visualized, but is grossly normal. There is no tricuspid stenosis. No tricuspid regurgitation. Pulmonic Valve The pulmonic valve is not well visualized. Great Vessels The aortic root is not well visualized but is probably normal size. The inferior vena cava was not visualized. Effusions There is no pericardial effusion. : NUNU MORENO > Nunu Moreno
--- NOTE | 2017-05-25 13:42 | PDOC PROGRESS REPORT ---
Subjective Progress Note for:: 05/25/17 Subjective:: Patient seems to be doing better. Pt is denying any chest arm or neck discomfort. Patient denying any PND, orthopnea. Patient denied any sustained palpitations, dizziness, syncope, near syncope. Patient denying any fever chills. Patient denying any other significant discomfort. Patient is maintaining sinus rhythm. Review of systems: Rest review of systems negative. Medications: Medications have been reviewed. Reason For Visit: CHEST PAIN Physical Exam Vital Signs: Temp Pulse Resp BP Pulse Ox 97.5 F 66 19 154/89 H 100 05/25/17 11:22 05/25/17 11:22 05/25/17 11:22 05/25/17 11:22 05/25/17 11:22 Intake & Output 05/24/17 05/25/17 05/26/17 06:59 06:59 06:59 Intake Total 240 Output Total 550 Balance -310 Weight 117.9 kg 117.9 kg Exam: GENERAL: well-nourished and in no acute distress. Alert and oriented x3 HEAD: Atraumatic, normocephalic. EYES: Pupils equal round and reactive to light, extraocular movements intact, sclera anicteric, conjunctiva are normal. ENT: TMs normal, nares patent, oropharynx clear without exudates. Moist mucous membranes. No oral ulcerations or bleeding gums noted NECK: supple without lymphadenopathy. Trachea is central. No cervical or axillary lymphadenopathy noted. Carotids are 2+, JVD WNL LUNGS: Respiration seems nonlabored, no significant accessory muscle action noted. Breath sounds clear to auscultation bilaterally and equal noted. No wheezes rales or rhonchi noted. No significant dullness noted on percussion. CHEST: Palpation of the chest wall shows no significant chest wall tenderness. No other significant abnormalities noted. HEART: [place] CRNA, No PSH, 1/6 FAREED aortic area, 1/6 mascorro systolic murmur mitral area, no rubs, no gallops. ABDOMEN: Soft, no significant tenderness appreciated, normoactive bowel sounds. No guarding, no rebound. No rigidity noted . No masses appreciated. EXTREMITIES: Pedal pulses are 1-2+, no calf tenderness noted. No clubbing or cyanosis. Negative pedal edema noted NEUROLOGICAL: Focused neurological exam showed no significant neurologic deficit. Normal speech, no focal weakness appreciated. PSYCH: Normal mood, normal affect. Judgment and insight within normal limits. SKIN: No significant ecchymosis, skin is noted to be warm. MUSCULOSKELETAL EXAM: No significant acute joint swelling noted. Results Laboratory Results: 05/25/17 05:41 05/25/17 05:41 05/25/17 05/25/17 05/25/17 05:41 05:41 05:41 WBC 7.5 RBC 4.87 Hgb 13.5 Hct 40.5 MCV 83 MCH 27.8 MCHC 33.4 RDW 14.3 H Plt Count 288 Sodium 143.3 Potassium 4.2 Chloride 109 H Carbon Dioxide 22 Anion Gap 12 BUN 17 Creatinine 0.96 Est GFR ( Amer) > 60 Est GFR (Non-Af Amer) > 60 Glucose 100 Calcium 9.2 Triglycerides 290 H Cholesterol 191.90 LDL Cholesterol Direct 94 VLDL Cholesterol 58.0 H HDL Cholesterol 48 TSH 05/25/17 05:41 WBC RBC Hgb Hct MCV MCH MCHC RDW Plt Count Sodium Potassium Chloride Carbon Dioxide Anion Gap BUN Creatinine Est GFR ( Amer) Est GFR (Non-Af Amer) Glucose Calcium Triglycerides Cholesterol LDL Cholesterol Direct VLDL Cholesterol HDL Cholesterol TSH 1.98 05/24/17 12:23 Troponin I < 0.012 EKG Comments: Shows sinus rhythm without any sustained cardiac dysrhythmias Impressions: Chest X-Ray 05/24/17 06:58 IMPRESSION: 1. No acute pulmonary process identified. Cardiomegaly Assessment & Plan - Diagnosis (1) Chest pain Qualifiers: Chest pain type: other chest pain Qualified Code(s): R07.89 - Other chest pain; R07.8 - Other chest pain Is this a current diagnosis for this admission?: Yes (2) HTN (hypertension) Qualifiers: Hypertension type: essential hypertension Qualified Code(s): I10 - Essential (primary) hypertension Is this a current diagnosis for this admission?: Yes (4) Factor II deficiency Is this a current diagnosis for this admission?: Yes (5) GERD (gastroesophageal reflux disease) Qualifiers: Esophagitis presence: esophagitis presence not specified Qualified Code(s) : K21.9 - Gastro-esophageal reflux disease without esophagitis Is this a current diagnosis for this admission?: Yes (6) Mitral valve disease Is this a current diagnosis for this admission?: Yes - Notes Notes: Chest pain: Patient claims chest pain is improved. This was evaluated with a nuclear stress test. Nuclear stress test was negative for any significant areas of ischemia or any significant areas of scar. The nuclear stress test is felt to be relatively low risk. Patient informed that occasionally single- vessel disease and balanced ischemia could be missed. Patient advised aggressive risk factor modification and medical therapy. Patient informed that further evaluation may become necessary if symptoms worsens or there is a development of new symptoms indicative of angina or angina equivalent symptom. . Hypertension: Blood pressure goal in this young lady would be 135/85 or less. Continue current antihypertensive therapy. Anxiety disorder: Currently stable. Gastroesophageal reflux disorder: Recommend double dose proton pump inhibitor. Mitral valve disease: Patient gives a history of this. 2D echocardiogram shows mild mitral regurgitation. Obesity: Patient wishes to lose weight. Patient was encouraged about it. Further plans after above scheduled tests are completed. - Time Time Spent with patient: Patient was seen multiple times. Total time exceeds 40 minutes. In the morning nuclear stress test procedure, risks benefits, alternatives were discussed. Patient seen during the stress test. Patient also seen after stress test when results were discussed with the patient in detail. Patient's questions were answered. Nuclear stress test results were discussed with the patient. Patient was informed that no definitive evidence of pharmacologic stress- induced ischemia noted. No definite fixed defects were noted. Patient informed that occasionally significant single vessel disease or balanced ischemia could be missed. However based on the current study results, would recommend aggressive risk factor modification and medical therapy. It may also be worthwhile to consider evaluation or empiric management of other causes of chest pain. Should no other cause be found and if persistent in having chest pain, then cardiac catheterization should be considered. Right now, recommendations are for aggressive risk factor modification and medical management. Time with patient: Greater than 35 minutes - CODE STATUS was discussed, patient remains full code. Surrogate decision-maker unchanged. Multiple medical problems were addressed. More than 50% of the time spent coordinating care, discussing management plans with involved caregivers. Management plans discussed with involved personnels. Medical decision making was of moderate to high complexity, patient's has multiple comorbidities. Medications reviewed and adjusted accordingly: Yes
--- NOTE | 2017-05-25 14:44 | PDOC DISCHARGE SUMMARY ---
General - Admit/Disc Date/PCP Admission Date/Primary Care Provider: 05/24/17 09:14 GAGE MATOS MD Discharge Date: 05/25/17 - Discharge Diagnosis (1) Chest pain Is this a current diagnosis for this admission?: Yes Summary: Presented with acute onset chest pain. Risk factors include age, smoking, obesity, HTN. Chest pain was midsternal and relieved with nitro. New ST depressions noted in inferior lead. Troponin not elevated at initial check. Has had cardiac cath in 2008 and stress test in 2014, which were both negative - ASA 325mg * 1 dose followed by ASA 81mg - Patient is already anticoagulated on Warfarin - Lipid profile obtained and showed elevated triglycerides, started on Lipitor 40mg qHS - Nuclear stress test: per cardiology there were no definitive evidence of pharmacologic stress-induced ischemia OR definite fixed defects noted - TTE was also obtainey by cardiology and showed preserved EF with G1DD - Followed by cardiology (Dr. Briggs) this admission Outpatient plan - Script given for ASA 81mg daily and Lipitor 40mg qhs - Given unclear cause of chest pain, this could be non-cardiac cause such as GERD. Will treat with PPI, script given for Omeprazole - Pt plans to follow up with Dr Briggs as an outpatient - Encouraged to quit smoking (nicotene patch script given) - Encouraged healthy life style changes including weight loss with healthy diet and exercise (2) HTN (hypertension) Is this a current diagnosis for this admission?: Yes Summary: Blood pressure has been elevated over last 2 days. Per patient, checks BP at home and usually 120/80s - On good outpatient regimen including Lisinopri 5mg, Coreg 25mg BID - Discontinued bystolic since she is already on Coreg - Follow up BP issues as an outpatient with PCP and cardiology (3) CAD (coronary artery disease) Is this a current diagnosis for this admission?: No (4) CHF (congestive heart failure) Is this a current diagnosis for this admission?: No Summary: Known history of CHF - On appropriate outpatient medical regimen - Continue home meds - TTE this admission (HFpEF): EF 55%, G1DD (5) Factor II deficiency Is this a current diagnosis for this admission?: Yes Summary: Chronic, on Warfarin at home, INR 2.54 - Additional Information Resuscitation Status: Full Code Discharge Diet: Cardiac Discharge Activity: Activity As Tolerated, Other - Return to work on 05/29 Prescriptions: Aspirin [Aspirin 81 mg Chewable Tablet] 81 mg PO DAILY #30 tab.chew Atorvastatin Calcium [Lipitor 40 mg Tablet] 40 mg PO QHS #30 tablet Nicotine [Nicoderm 14 mg/24 Hr Transdermal Patch] 1 each TD QPM #30 patch.td24 Home Medications: Albuterol Sulfate [Proair HFA] 2 puff IH Q4HP PRN 05/24/17 Carvedilol [Coreg 25 mg Tablet] 1 tab PO Q12 05/24/17 Eszopiclone [Lunesta] 3 mg PO HSP PRN 05/24/17 Gabapentin [Neurontin 300 mg Capsule] 300 mg PO BID 05/24/17 Lisinopril [Prinivil 5 mg Tablet] 5 mg PO DAILY 05/24/17 Mometasone/Formoterol [Dulera 100 Mcg/5 Mcg Inhaler] 2 puff IH DAILY 05/24/17 Naproxen [Naprosyn] 500 mg PO DAILYP PRN 05/24/17 Tizanidine HCl [Zanaflex 4 mg Tablet] 4 mg PO QHS 05/24/17 Topiramate [Topamax 100 mg Tablet] 100 mg PO QHS 05/24/17 Topiramate [Topamax] 50 mg PO DAILY 05/24/17 Venlafaxine HCl ER [Effexor Xr 75 mg Cap.sr] 75 mg PO DAILY 05/24/17 Venlafaxine HCl [Effexor Xr] 150 mg PO DAILY 05/24/17 Warfarin Sodium [Coumadin 4 mg Tablet] 4 mg PO TUTHSA@219905/24/17 Warfarin Sodium [Coumadin 5 mg Tablet] 5 mg PO SUMOWEFR@219905/24/17 Aspirin [Aspirin 81 mg Chewable Tablet] 81 mg PO DAILY #30 tab.chew 05/25/17 Atorvastatin Calcium [Lipitor 40 mg Tablet] 40 mg PO QHS #30 tablet 05/25/17 Nicotine [Nicoderm 14 mg/24 Hr Transdermal Patch] 1 each TD QPM #30 patch.td24 05/25/17 History of Present Illness Patient complains of: chest pain History of Present Illness: KAMARI BOONE is a 51 year old female with history of HTN, pulmonary HTN, CHF, and 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 She was states over the weekend she was in normal health. However while at work on Monday 05/22, she noted that her blood pressure was more elevated than normal. She developed mid-sternal chest pain, SOB, diaphoresis, and headaches. Symptoms have persistent over the last two days. States chest pain occurs at rest and is not related with exertion. Denies fevers, chills, abdominal pain, NV. No sick contacts. She does have a history of HTN and is a current smoker. States that she has had a left heart cath in 2008 in [place] following an episode of chest pain. States was negative and no stents were placed. She also had stress test 3 years ago which was reportedly normal. [facility] she received nitro with improvement in her CP. Currently states that she is feeling overall well. Of note, she denies focal weakness. However feels that she is not thinking as clear as normal. Admitted to hospitalist for observation and further cardiac work up. Physical Exam Vital Signs: Temp Pulse Resp BP Pulse Ox 97.5 F 66 19 154/89 H 100 05/25/17 11:22 05/25/17 11:22 05/25/17 11:22 05/25/17 11:22 05/25/17 11:22 Intake & Output 05/24/17 05/25/17 05/26/17 06:59 06:59 06:59 Intake Total 240 Output Total 550 Balance -310 Weight 117.9 kg 117.9 kg General appearance: PRESENT: no acute distress, cooperative, morbidly obese Head exam: PRESENT: normocephalic Mouth exam: PRESENT: moist Respiratory exam: PRESENT: unlabored. ABSENT: tachypnea Cardiovascular exam: PRESENT: +S1, +S2 GI/Abdominal exam: PRESENT: soft. ABSENT: tenderness Musculoskeletal exam: PRESENT: ambulatory Neurological exam: PRESENT: alert, awake, CN II-XII grossly intact Psychiatric exam: PRESENT: appropriate affect Results Laboratory Results: 05/25/17 05:41 05/25/17 05:41 05/25/17 05/25/17 05/25/17 05:41 05:41 05:41 WBC 7.5 RBC 4.87 Hgb 13.5 Hct 40.5 MCV 83 MCH 27.8 MCHC 33.4 RDW 14.3 H Plt Count 288 Sodium 143.3 Potassium 4.2 Chloride 109 H Carbon Dioxide 22 Anion Gap 12 BUN 17 Creatinine 0.96 Est GFR ( Amer) > 60 Est GFR (Non-Af Amer) > 60 Glucose 100 Calcium 9.2 Triglycerides 290 H Cholesterol 191.90 LDL Cholesterol Direct 94 VLDL Cholesterol 58.0 H HDL Cholesterol 48 TSH 05/25/17 05:41 WBC RBC Hgb Hct MCV MCH MCHC RDW Plt Count Sodium Potassium Chloride Carbon Dioxide Anion Gap BUN Creatinine Est GFR ( Amer) Est GFR (Non-Af Amer) Glucose Calcium Triglycerides Cholesterol LDL Cholesterol Direct VLDL Cholesterol HDL Cholesterol TSH 1.98 05/24/17 12:23 Troponin I < 0.012 Impressions: Chest X-Ray 05/24/17 06:58 IMPRESSION: 1. No acute pulmonary process identified. Cardiomegaly Stress test and TTE results above Qualifiers - * PATEINT BEING DISCHARGED WITH ANY OF THE FOLLOWING DIAGNOSIS?: No
[2017-05-25 14:49] VITALS: BP 156/83
[2017-05-25] MEDS ORDERED: WARFARIN SODIUM 4 MG TABLET PO SCH (22:00)
[2017-05-25] MEDS ORDERED: (PENDING PHARMACY ID) (Warfarin Sodium 4 MG) PO SCH (22:00)
== END 2017-05-25 15:43 | disposition home or self-care (01) ==
LOC: ER 06:49 → EH 09:14 → 4S 15:07
PROVIDERS: ADMIT Emergency Medicine; ATTEND Emergency Medicine
PROC: HZ31ZZZ Individual Counseling for Substance Abuse Treatment, Behavioral (ICD-10-PCS; principal; 2017-05-24)
DX: R07.89 Other chest pain (principal); I25.10 Atherosclerotic heart disease of native coronary artery without angina pectoris; I11.0 Hypertensive heart disease with heart failure; I50.9 Heart failure, unspecified; E66.01 Morbid (severe) obesity due to excess calories; D68.2 Hereditary deficiency of other clotting factors; E78.1 Pure hyperglyceridemia; F17.210 Nicotine dependence, cigarettes, uncomplicated; I25.2 Old myocardial infarction; K21.9 Gastro-esophageal reflux disease without esophagitis; I05.9 Rheumatic mitral valve disease, unspecified; F41.9 Anxiety disorder, unspecified; J44.9 Chronic obstructive pulmonary disease, unspecified; Z79.01 Long term (current) use of anticoagulants; Z68.42 Body mass index [BMI] 45.0-49.9, adult; Z86.73 Personal history of transient ischemic attack (TIA), and cerebral infarction without residual deficits; Z86.69 Personal history of other diseases of the nervous system and sense organs; Z82.49 Family history of ischemic heart disease and other diseases of the circulatory system; Z79.51 Long term (current) use of inhaled steroids; Z79.899 Other long term (current) drug therapy
CPT/HCPCS: 93005 ×2; 94640; 99285; 36415 ×2; 82550; 83690; 84443; 85025; 85027; 85610 ×2; 85730; 80048; 80053; 84484; 80061; 83880; 93306; 93017; 71046; 78452; 93010 ×2; 99406; A9500; J2785; J3490 ×6; J0280; J7620; Q9969; G0378

== ENCOUNTER 2017-07-11 06:31 | Observation (INO) | payer BC ==
[2017-07-11 07:11] LABS: ABSOLUTE BASOPHILS # (AUTO) 0.1 10^3/uL (0.0-0.2); ABSOLUTE EOSINOPHILS # (AUTO) 0.2 10^3/uL (0.0-0.6); ABSOLUTE LYMPHOCYTES (AUTO) 2.5 10^3/uL (0.5-4.7); ABSOLUTE MONOCYTES (AUTO) 0.7 10^3/uL (0.1-1.4); ABSOLUTE NEUT (AUTO) 3.5 10^3/uL (1.7-8.2); EOSINOPHILS % (AUTO) 2.6 % (0-6); HEMATOCRIT 40.3 % (36.0-47.0); HEMOGLOBIN 13.3 g/dL (12.0-15.5); LYMPHOCYTES % (AUTO) 36.6 % (13-45); MEAN CORPUSCULAR HEMOGLOBIN 27.8 pg (27.0-33.4); MEAN CORPUSCULAR HGB CONC 33.1 g/dL (32.0-36.0); MEAN CORPUSCULAR VOLUME 84 fl (80-97); MONOCYTES % (AUTO) 9.6 % (3-13); PLATELET COUNT 292 10^3/uL (150-450); RED BLOOD COUNT 4.79 10^6/uL (3.72-5.28); RED CELL DISTRIBUTION WIDTH 14.4 % (11.5-14.0); SEGMENTED NEUTROPHILS % (AUTO) 50.2 % (42-78); TOTAL CELLS COUNTED % (AUTO) 100 %; WHITE BLOOD COUNT 6.9 10^3/uL (4.0-10.5)
[2017-07-11 07:12] LABS: INTERNATIONAL RATION (INR) 3.01; PROTHROMBIN TIME 32.6 SEC (11.4-15.4)
[2017-07-11 07:13] LABS: PARTIAL THROMBOPLASTIN TIME 52.2 SEC (23.5-35.8)
[2017-07-11 07:30] LABS: ALANINE AMINOTRANSFERASE 47 U/L (9-52); ALBUMIN 4.1 g/dL (3.5-5.0); ALKALINE PHOSPHATASE 42 U/L (38-126); ANION GAP 14 (5-19); ASPARTATE AMINO TRANSFERASE 32 U/L (14-36); BILIRUBIN,DIRECT 0.3 mg/dL (0.0-0.4); BILIRUBIN,TOTAL 0.3 mg/dL (0.2-1.3); BLOOD UREA NITROGEN 10 mg/dL (7-20); CALCIUM 9.4 mg/dL (8.4-10.2); CARBON DIOXIDE 24 mmol/L (22-30); CHLORIDE 107 mmol/L (98-107); CREATINE KINASE 126 U/L (30-135); GLUCOSE 92 mg/dL (75-110); POTASSIUM 4.5 mmol/L (3.6-5.0); SODIUM 145.1 mmol/L (137-145); TOTAL PROTEIN 7.2 g/dL (6.3-8.2)
[2017-07-11 07:41] LABS: CREATINE KINASE MB 0.84 ng/mL (<4.55)
[2017-07-11 07:48] LABS: TROPONIN I < 0.012 ng/mL
--- NOTE | 2017-07-11 08:22 | RADIOLOGY REPORT (SQ) ---
EXAM DESCRIPTION: CHEST SINGLE VIEW COMPLETED DATE/TIME: 07/11/2017 6:54 am REASON FOR STUDY: stroke protocol COMPARISON: 05/24/2017 EXAM PARAMETERS: NUMBER OF VIEWS: One view. TECHNIQUE: Single frontal radiographic view of the chest acquired. RADIATION DOSE: NA LIMITATIONS: None. FINDINGS: LUNGS AND PLEURA: No opacities, masses or pneumothorax. No pleural effusion. MEDIASTINUM AND HILAR STRUCTURES: No masses. Contour normal. HEART AND VASCULAR STRUCTURES: Heart normal in size. Normal vasculature. BONES: No acute findings. HARDWARE: None in the chest. OTHER: No other significant finding. IMPRESSION: NO ACUTE RADIOGRAPHIC FINDING IN THE CHEST. TECHNICAL DOCUMENTATION: JOB ID: [id number] [employer]- All Rights Reserved Reading location - IP/workstation name: [email or web address]
--- NOTE | 2017-07-11 08:27 | ER Document Report ---
ED General - General Chief Complaint: Dizziness Stated Complaint: POSSIBLE STROKE Time Seen by Provider: 07/11/17 07:12 TRAVEL OUTSIDE OF THE [place] IN LAST 30 DAYS: No - HPI Notes: 51-year-old female with a stated history of CVAs TIAs and strokes, no residual deficits, multiple other health issues who presents with possible CVA. 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 She takes daily Coumadin for this. States she was last known well around 9:30 PM yesterday. Around 12:30 PM she woke up in her recliner after falling asleep. States at that time her right leg was weak and would do what she wanted it to do. She also indicates that her right 5 distal fingertips have been numb for the last couple of days. Gradual in onset. No other modifying factors, no other associated symptoms, no other provocative or palliative factors. Is been compliant with her Coumadin. Has had no recent falls. Denies any numbness, slurred speech or other complaint. She presents via personal vehicle as a stroke alert - Related Data Allergies/Adverse Reactions: No Known Allergies Allergy (Unverified 12/16/11 21:42) Past Medical History - Social History Smoking Status: Unknown if Ever Smoked Chew tobacco use (# tins/day): No Frequency of alcohol use: None Drug Abuse: None Family History: CAD, Hypertension Patient has suicidal ideation: No Patient has homicidal ideation: No - Medical History Notes: "Factor II" deficiency, previous strokes and TIAs - Past Medical History Cardiac Medical History: Reports: Hx Congestive Heart Failure, Hx Heart Attack, Hx Hypercholesterolemia, Hx Hypertension Pulmonary Medical History: Reports: Hx Asthma, Hx COPD, Hx Pneumonia Neurological Medical History: Reports: Hx Migraine, Hx Seizures - last seizure 8 -9 years ago Renal/ Medical History: Denies: Hx Peritoneal Dialysis Musculoskeltal Medical History: Reports Hx Fibromyalgia Psychiatric Medical History: Reports: Hx Depression Past Surgical History: Reports: Hx Section, Hx Orthopedic Surgery, Hx Tubal Ligation - Immunizations Hx Diphtheria, Pertussis, Tetanus Vaccination: Yes Hx Pneumococcal Vaccination: 11/02/13 Review of Systems - Review of Systems Notes: Review of systems as in the history of present illness, otherwise negative. Physical Exam - Vital signs Vitals: Temp Pulse Resp BP Pulse Ox 98.0 F 71 16 146/88 H 97 07/11/17 06:33 07/11/17 06:33 07/11/17 06:33 07/11/17 06:33 07/11/17 06:33 - Notes Notes: General: Well developed, well nourished. HEENT: Normocephalic, atraumatic. PEERL. No conjunctival injection. Neck: Supple, no significant adenopathy. No meningismus. Chest: Clear bilaterally, good air entry. Abdomen: Soft, non-tender, nondistended. Back: Non-tender. Normal ROM Extremities: No cyanosis, clubbing or edema. Vascular: Symmetric peripheral pulses, normal capillary refill. Skin: No significant rash. No petechiae or purpura. Motor: Normal tone, there is 4- out of 5 strength in the right lower extremity. Drifts down to less than 5 seconds. Neurologic: Alert and oriented to person place and time. Cranial nerves II-12 are intact. Sensation intact and symmetric in the upper and lower extremities with the exception of slight diminished sensation in the distal fingertips of the right hand. No cerebellar findings including finger-nose testing. No clonus. Gait normal. Funduscopic exam shows crisp disc margins, no evidence of papilledema. Course - Re-evaluation Re-evalutation: 51-year-old female with a stated history of recurrent strokes and TIAs who presents with possible stroke. Of note, she is a relatively low NIH score of 1 or 2. Moreover, she has had marked improvement by her admission since when she first came in. Her initial complete dense right lower extremity paralysis is now resolving. Both of these would likely take her out as a lytic candidate, moreover she is anticoagulated on Coumadin. Emergent stroke CT is obtained by nursing staff per protocol. Labs are obtained. 07/11/17 10:32 CT read as acutely unremarkable, no evidence of bleed or stroke. Comment was made via telephone on some fullness in the pituitary. 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 Labs reviewed, CBC unremarkable, chemistries unremarkable. INR is supratherapeutic at 3.1. Patient had some improvement in her right lower extremity weakness and is now 4 out of 5. However, she is not resolved. Does meet criteria for stroke. She is admitted to the hospitalist service for continued evaluation and management. - Vital Signs Vital signs: Temp Pulse Resp BP Pulse Ox 98.0 F 68 17 132/81 H 95 07/11/17 06:33 07/11/17 06:57 07/11/17 08:01 07/11/17 08:01 07/11/17 08:01 - Laboratory Result Diagrams: 07/11/17 07:00 07/11/17 07:00 Laboratory results interpreted by me: 07/11/17 07/11/17 07/11/17 07:00 07:00 07:00 RDW 14.4 H PT 32.6 H APTT 52.2 H Sodium 145.1 H Est GFR ( Amer) 56 L Est GFR (Non-Af Amer) 46 L Discharge - Discharge Clinical Impression: Stroke Qualifiers: CVA mechanism: unspecified Qualified Code(s): I63.9 - Cerebral infarction, unspecified Condition: Serious Disposition: ADMITTED OBSERVATION Admitting Provider: Hospitalist Unit Admitted: [facility]
--- NOTE | 2017-07-11 08:35 | RADIOLOGY REPORT (SQ) ---
EXAM DESCRIPTION: CT HEAD WITHOUT COMPLETED DATE/TIME: 07/11/2017 6:52 am REASON FOR STUDY: stroke protocol COMPARISON: None. TECHNIQUE: Axial images acquired through the brain without intravenous contrast. Images reviewed wi th bone, brain and subdural windows. Additional sagittal and coronal reconstructions were generated. Images stored on PACS. All CT scanners at this facility use dose modulation, iterative reconstruction, and/or weight based d osing when appropriate to reduce radiation dose to as low as reasonably achievable (ALARA). [facility]: Dose Right [facility]: CareDose [facility]: Dose Right [facility]: Teradose 4D [facility]: Appsperse RADIATION DOSE: CT Rad equipment meets quality standard of care and radiation dose reduction techniq ues were employed. CTDIvol: 53.2 mGy. DLP: 991 mGy-cm. mGy. LIMITATIONS: None. FINDINGS: VENTRICLES: Normal size and contour. CEREBRUM: No masses. No hemorrhage. No midline shift. No evidence for acute infarction. Normal gra y/white matter differentiation. No areas of low density in the white matter. CEREBELLUM: No masses. No hemorrhage. No alteration of density. No evidence for acute infarction. EXTRAAXIAL SPACES: No fluid collections. No masses. ORBITS AND GLOBE: No intra- or extraconal masses. Normal contour of globe without masses. CALVARIUM: No fracture. PARANASAL SINUSES: No fluid or mucosal thickening. SOFT TISSUES: No mass or hematoma. OTHER: Pituitary gland appears slightly prominent. MRI if further evaluation indicated based on clin ical findings. IMPRESSION: No intracranial hemorrhage or evidence of acute stroke. Incidental finding of slightly prominent pituitary gland. See above discussion. EVIDENCE OF ACUTE STROKE: NO. COMMENT: Category of Critical Exam: Pertinent positive or negative findings of the imaging study reported as a CRITICAL EXAM to RAJAN SUBRAMANIAN MD at08:29 on 07/11/2017. Quality ID # [id number]: Final reports with documentation of one or more dose reduction techniques (e.g., Au tomated exposure control, adjustment of the mA and/or kV according to patient size, use of iterative reconstruction technique) TECHNICAL DOCUMENTATION: JOB ID: [id number] [employer]- All Rights Reserved Reading location - IP/workstation name: [email or web address]
[2017-07-11] MEDS ORDERED: ONDANSETRON HCL INJ/PF 4 MG/2 ML SDV IV PRN (09:56)
[2017-07-11] MEDS ORDERED: DOCUSATE SODIUM 100 MG CAPSULE PO PRN (09:56)
[2017-07-11] MEDS ORDERED: ACETAMINOPHEN 325 MG TABLET PO PRN (09:56)
[2017-07-11] MEDS ORDERED: NICOTINE 14 MG/24 HR PATCH.TD24 TD PRN (10:19)
[2017-07-11 10:21] LABS: APPEARANCE,URINE CLEAR; BILIRUBIN,URINE NEGATIVE (NEGATIVE); COLOR,URINE STRAW; GLUCOSE, URINE NEGATIVE (NEGATIVE); KETONES,URINE NEGATIVE (NEGATIVE); LEUKOCYTE ESTERASE,URINE SMALL (NEGATIVE); NITRITE,URINE NEGATIVE (NEGATIVE); PROTEIN,URINE NEGATIVE (NEGATIVE); URINE SPECIFIC GRAVITY 1.004; UROBILINOGEN,URINE NEGATIVE mg/dL (<2.0)
[2017-07-11 10:35] LABS: URINE AMPHETAMINES SCREEN NEGATIVE; URINE BARBITURATES SCREEN NEGATIVE; URINE BENZODIAZEPINES SCREEN NEGATIVE; URINE COCAINE SCREEN UNCONFIRMED POSITIVE; URINE MARIJUANA (THC) SCREEN NEGATIVE; URINE METHADONE SCREEN NEGATIVE; URINE PHENCYCLIDINE SCREEN NEGATIVE
[2017-07-11] MEDS ORDERED: HYDRALAZINE HCL INJ/PF 20 MG/1 ML SDV IV PRN (10:36)
--- NOTE | 2017-07-11 10:47 | PDOC H&P ---
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 The patient reports that she noticed numbness and tingling to her right fingertips approximately 3 days ago. She states that she had no other symptoms until last night when she woke around midnight. She states that she was sleeping in the recliner and got up to move to her bedroom when her right leg gave out on her. She went back to sleep and upon waking this morning found that she continued to have right upper and lower extremity paresthesia and weakness. She drove herself to the emergency department for further evaluation. Workup in the emergency department is essentially benign. INR is mildly supratherapeutic at 3.01, sodium of 145.1. CT of the head was negative for evidence of acute CVA. She is referred to the hospitalist service for observational admission and workup of TIA/CVA. Past Medical History Cardiac Medical History: Reports: Congestive Heart Failure, Myocardial Infarction, Hyperlipidema, Hypertension, Other - PFO Pulmonary Medical History: Reports: Asthma, Chronic Obstructive Pulmonary Disease (COPD), Pneumonia Neurological Medical History: Reports: Migraine, Seizures - last seizure 8-9 years ago, Other - TIA Endocrine Medical History: Reports: None Renal/ Medical History: Reports: Chronic Kidney Disease Malignancy Medical History: Reports: None GI Medical History: Reports: None Musculoskeltal Medical History: Reports: Fibromyalgia Skin Medical History: Reports: None Psychiatric Medical History: Reports: Depression, Tobacco Dependency Hematology: Reports: Other - Factor II clotting disorder Infectious Medical History: Reports: None Past Surgical History Past Surgical History: Reports: Section, Orthopedic Surgery, Tubal Ligation Social History Information Source: Patient Lives with: Alone Smoking Status: Current Every Day Smoker Cigarettes Packs Per Day: 0.5 Frequency of Alcohol Use: None Hx Recreational Drug Use: No Drugs: None Hx Prescription Drug Abuse: No - Advance Directive Resuscitation Status: Do Not Resuscitate Surrogate healthcare decision maker:: Declines to appoint surrogate decision maker. Family History Family History: CAD, Hypertension Parental Family History Reviewed: Yes Children Family History Reviewed: Yes Sibling(s) Family History Reviewed.: Yes Medication/Allergy Allergies/Adverse Reactions: No Known Allergies Allergy (Unverified 12/16/11 21:42) Review of Systems Constitutional: PRESENT: as per HPI. ABSENT: chills, fatigue, fever(s), headache(s), weight gain, weight loss Eyes: ABSENT: visual disturbances Ears: ABSENT: hearing changes Nose, Mouth, and Throat: ABSENT: headache(s), vertigo Cardiovascular: ABSENT: chest pain, dyspnea on exertion, edema, orthropnea, palpitations Respiratory: ABSENT: cough, hemoptysis Gastrointestinal: ABSENT: abdominal pain, constipation, diarrhea, hematemesis, hematochezia, nausea, vomiting Genitourinary: ABSENT: difficulty urinating, dysuria, hematuria Musculoskeletal: PRESENT: back pain, muscle weakness - RLE. ABSENT: joint swelling Integumentary: ABSENT: rash, wounds Neurological: PRESENT: as per HPI, focal weakness - RLE, numbness - Rt finger tips. ABSENT: abnormal gait, abnormal movements, abnormal speech, confusion, dizziness, syncope, vertigo Psychiatric: ABSENT: anxiety, depression, homidical ideation, suicidal ideation Endocrine: ABSENT: cold intolerance, heat intolerance, polydipsia, polyuria Hematologic/Lymphatic: ABSENT: easy bleeding, easy bruising Physical Exam Vital Signs: Temp Pulse Resp BP Pulse Ox 98.0 F 68 17 132/81 H 95 07/11/17 06:33 07/11/17 06:57 07/11/17 08:01 07/11/17 08:01 07/11/17 08:01 General appearance: PRESENT: no acute distress, obese, well-developed, well- nourished Head exam: PRESENT: atraumatic, normocephalic Eye exam: PRESENT: conjunctiva pink, EOMI, PERRLA. ABSENT: scleral icterus Ear exam: PRESENT: normal external ear exam Mouth exam: PRESENT: moist, tongue midline Neck exam: ABSENT: carotid bruit, JVD, lymphadenopathy, thyromegaly Respiratory exam: PRESENT: clear to auscultation mary, symmetrical, unlabored. ABSENT: rales, rhonchi, wheezes Cardiovascular exam: PRESENT: RRR, +S1, +S2. ABSENT: diastolic murmur, rubs, systolic murmur Pulses: PRESENT: normal dorsalis pedis pul Vascular exam: PRESENT: normal capillary refill GI/Abdominal exam: PRESENT: normal bowel sounds, soft. ABSENT: distended, guarding, mass, organolmegaly, rebound, tenderness Rectal exam: PRESENT: deferred Extremities exam: PRESENT: full ROM. ABSENT: calf tenderness, clubbing, pedal edema Musculoskeletal exam: PRESENT: ambulatory Neurological exam: PRESENT: alert, awake, oriented to person, oriented to place , oriented to time, oriented to situation, CN II-XII grossly intact, normal gait , other - RLE strength 4/5 w/ leg drift. Sensation is equal bilaterally with exception of right fingertips. No cerebellar findings.. ABSENT: motor sensory deficit Psychiatric exam: PRESENT: appropriate affect, normal mood. ABSENT: homicidal ideation, suicidal ideation Skin exam: PRESENT: dry, intact, warm. ABSENT: cyanosis, rash Results Impressions: Chest X-Ray 07/11/17 06:42 IMPRESSION: NO ACUTE RADIOGRAPHIC FINDING IN THE CHEST. Head CT 07/11/17 06:42 IMPRESSION: No intracranial hemorrhage or evidence of acute stroke. Incidental finding of slightly prominent pituitary gland. See above discussion. EVIDENCE OF ACUTE STROKE: NO. Assessment & Plan - Diagnosis (1) Weakness of right lower extremity Is this a current diagnosis for this admission?: Yes Plan: Patient noted right lower extremity weakness upon waking last night at approximately midnight. Weakness was associated with a fall without injury. She continues to have right lower extremity weakness; strength 4/5. Sensation is equal bilaterally. Symptoms were preceded by numbness and tingling to right fingers beginning approximately 3 days ago. She does have a history of TIA. She is admitted to [facility] for TIA/CVA rule out. Head CT is negative for acute stroke. Echocardiogram was completed at previous admission (05/25/17): Normal LVEF, mild diastolic dysfunction, borderline right ventricular enlargement with normal right ventricular systolic function. The patient will be admitted to [facility] on continuous cardiac telemetry. We will obtain head MRA/MRI and carotid Doppler. We will obtain lipid panel and A1c to further stratify stroke risk. We will further evaluate right lower extremity weakness with lumbar MRI. Patient reports remote history of back injury and she has begun sleeping in the recliner recently 2/2 increased pain; symptoms may be evidence of spinal stenosis. Will continue patient's home Coumadin therapy. Daily aspirin and Statin therapy. PT to evaluate and treat per protocols. (2) Fall Qualifiers: Encounter type: initial encounter Qualified Code(s): W19.XXXA - Unspecified fall, initial encounter Is this a current diagnosis for this admission?: Yes Plan: Patient fell last night secondary to right lower extremity weakness. She denies injury and was able to drive herself in to the hospital this morning. Will ask PT to evaluate and treat per protocols. Tylenol as needed for pain. 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 However, factor II deficiency is characterized by excessive bleeding after invasive procedures and the patient is noted to be on chronic Coumadin therapy. I would theorize that a Factor II deficiency would be a strong contraindication for anticoagulant medications. I believe the patient may be mistaken regarding her diagnosis. Urinalysis reveals a small amount of blood. Otherwise, she has no overt signs of bleeding; Hgb is 13.3, she is normotensive and not tachycardic. Her bilateral ankles and knees were examined; no edema or ecchymosis is present. Head CT is negative for intracranial hemorrhage. The patient may benefit from outpatient referral to hematology for clarification of clotting disorder. Will monitor closely for signs of bleeding/acute blood loss. (4) CHF (congestive heart failure) Qualifiers: Heart failure type: diastolic Heart failure chronicity: chronic Qualified Code(s): I50.32 - Chronic diastolic (congestive) heart failure Is this a current diagnosis for this admission?: Yes Plan: Echocardiogram from previous admission (05/2017) was reviewed. Echocardiogram demonstrated preserved ejection fraction with mild diastolic dysfunction. The patient has no evidence of fluid overload or acute exacerbation at this time. We will continue her home medication regiment once reconciled. (5) HTN (hypertension) Qualifiers: Hypertension type: essential hypertension Qualified Code(s): I10 - Essential (primary) hypertension Is this a current diagnosis for this admission?: Yes Plan: Normotensive at present; will allow for permissive HTN. IV Hydralazine is available as needed for blood pressure control. Will review and resume home medications once reconciled by pharmacy. (6) GERD (gastroesophageal reflux disease) Qualifiers: Esophagitis presence: esophagitis presence not specified Qualified Code(s) : K21.9 - Gastro-esophageal reflux disease without esophagitis Is this a current diagnosis for this admission?: Yes Plan: Protonix (7) Tobacco dependence Is this a current diagnosis for this admission?: Yes Plan: Smoking cessation is encouraged; nicotine replacement therapies are provided. (8) DNR (do not resuscitate) Is this a current diagnosis for this admission?: Yes Plan: The patient advises that she wishes to be made a DNR and requests to have DNR paperwork completed prior to discharge. - Time Time Spent: 50 to 70 Minutes Smoking Cessation Education: 3 to 10 minutes Medications reviewed and adjusted accordingly: Yes Anticipated discharge: Home Within: within 24 hours - Plan Summary Plan Summary: Admitted under observational status for TIA/CVA workup. Anticipate that the evaluation will be completed and patient will be stable for discharge tomorrow.
--- NOTE | 2017-07-11 12:36 | EKG REPORT ---
SEVERITY:- BORDERLINE ECG - SINUS RHYTHM PROBABLE LEFT ATRIAL ABNORMALITY BORDERLINE T WAVE ABNORMALITIES : Confirmed by: Zhou Tam MD 11-Jul-2017 12:35:09
--- NOTE | 2017-07-11 12:57 | RADIOLOGY REPORT (SQ) ---
EXAM DESCRIPTION: MRA HEAD WITHOUT COMPLETED DATE/TIME: 07/11/2017 12:43 pm REASON FOR STUDY: TIA/CVA workup; Rt side weakness COMPARISON: None. TECHNIQUE: Axial 3-D [id number] acquisition imaging performed through the brain in the area of t he [place] of [place]. Images reformatted using 3-D MIPS. LIMITATIONS: None. FINDINGS: SOURCE IMAGES: No unexpected findings on source images. No large masses. 3-D MIP: No aneurysm. No occlusions. No significant stenosis. OTHER: No other significant finding. IMPRESSION: NORMAL MRA OF THE [place] OF [place]. TECHNICAL DOCUMENTATION: JOB ID: [id number] [employer]- All Rights Reserved Reading location - IP/workstation name: [email or web address]
--- NOTE | 2017-07-11 13:06 | RADIOLOGY REPORT (SQ) ---
EXAM DESCRIPTION: MRI HEAD WITHOUT COMPLETED DATE/TIME: 07/11/2017 12:43 pm REASON FOR STUDY: TIA/CVA workup; Rt side weakness COMPARISON: Brain CT scan dated 07/11/2017 TECHNIQUE: Multiplanar imaging includes non-contrasted T1, T2, FLAIR, and diffusion with ADC map seq uences. Images stored on PACS. LIMITATIONS: None. FINDINGS: ANATOMY: No anomalies. Normal vascular flow voids. Pituitary fossa normal. CSF SPACES: Normal in size and contour. No hemorrhage. CEREBRUM: Sulci and gyri normal in size and contour. Normal white matter signal on FLAIR imaging. No evidence of hemorrhage, mass, or extraaxial fluid collection. POSTERIOR FOSSA: No signal alteration. No hemorrhage. No edema, masses or mass effect. Internal staci tory canals, cerebello-pontine angles, mastoids normal. DIFFUSION IMAGING: Negative for acute or sub-acute infarction. ORBITS: No masses. Globes normal. PARANASAL SINUSES: No fluid levels. Mucosa normal. OTHER: No other significant finding. IMPRESSION: NORMAL MRI OF THE BRAIN WITHOUT INTRAVENOUS GADOLINIUM CONTRAST. EVIDENCE OF ACUTE STROKE: NO. TECHNICAL DOCUMENTATION: JOB ID: [id number] [employer]- All Rights Reserved Reading location - IP/workstation name: [email or web address]
[2017-07-11] MEDS ORDERED: (PENDING PHARMACY ID) (Mometasone Furoate [Nasonex] 1 SPRAY) NASL PRN (13:08)
[2017-07-11] MEDS ORDERED: ALBUTEROL SULFATE HFA (90 MCG/PUFF) 8 GM MDI (1 MDI/ER DISP) IH PRN (13:08)
[2017-07-11] MEDS ORDERED: (PENDING PHARMACY ID) (Warfarin Sodium 5 MG) PO SCH (13:15)
--- NOTE | 2017-07-11 14:04 | RADIOLOGY REPORT (SQ) ---
EXAM DESCRIPTION: MRI LUMBAR SPINE WITHOUT COMPLETED DATE/TIME: 07/11/2017 12:43 pm REASON FOR STUDY: RLE paresthesia/weakness COMPARISON: None. TECHNIQUE: Sagittal and Axial imaging includes T1, T2, STIR and gradient echo sequences. Coronal T2/ HASTE imaging. LIMITATIONS: None. FINDINGS: VISUALIZED UPPER ABDOMEN: Limited evaluation. No acute or suspicious findings suggested. SEGMENTATION: Sacralization of L5 with pseudoarthrosis to right of midline. ALIGNMENT: Anatomic. VERTEBRAE: Intact. BONE MARROW: Hemangioma T12. No significant marrow abnormality. DISC SIGNAL: Normal. No significant abnormal signal or loss of height. POSTERIOR ELEMENTS: Intact. HARDWARE: None in the spine. CORD AND CONUS: Normal in size and signal intensity. Conus at the appropriate level. SOFT TISSUES: No aortic aneurysm seen. No bulky retroperitoneal adenopathy or mass. No paraspinal mas s or fluid. L1-L2: No significant spinal stenosis or exit foraminal stenosis. L2-L3: No significant spinal stenosis or exit foraminal stenosis. L3-L4: No significant spinal stenosis or exit foraminal stenosis. L4-L5: Facet arthropathy. No significant spinal stenosis or exit foraminal stenosis. L5-S1: Facet arthropathy. No significant spinal stenosis or exit foraminal stenosis. LOWER THORACIC: Incompletely imaged. No stenosis seen. SACRUM: Visualized upper sacrum intact. OTHER: No other significant findings. IMPRESSION: Facet arthropathy. Right pseudoarthrosis at L5-S1. TECHNICAL DOCUMENTATION: JOB ID: [id number] [employer]- All Rights Reserved Reading location - IP/workstation name: [email or web address]
[2017-07-11] MEDS ORDERED: ZOLPIDEM TARTRATE 5 MG TABLET PO PRN (14:08)
[2017-07-11] MEDS: ASPIRIN 81 MG TABLET, ENT COATED PO SCH (15:16)
[2017-07-11] MEDS: PANTOPRAZOLE SODIUM 40 MG VIAL IV SCH (15:16)
[2017-07-11] MEDS ORDERED: (PENDING PHARMACY ID) (Bumetanide [Bumex 0.5 Mg Tablet] 0.5 MG) PO SCH (18:00)
[2017-07-11] MEDS ORDERED: (PENDING PHARMACY ID) (Mometasone/Formoterol [Dulera 100 Mcg/5 Mcg Inhaler] 2 PUFF) IH SCH (18:00)
[2017-07-11] MEDS ORDERED: TOPIRAMATE 100 MG TABLET PO SCH (18:00)
[2017-07-11] MEDS ORDERED: PRAMIPEXOLE DI-HCL 0.5 MG TABLET PO ONE (18:15)
[2017-07-11] MEDS: BUMETANIDE 1 MG TABLET PO SCH (18:43)
[2017-07-11] MEDS: CARVEDILOL 12.5 MG TABLET PO SCH (21:44)
[2017-07-11] MEDS ORDERED: ATORVASTATIN CALCIUM 20 MG TABLET PO SCH (22:00)
[2017-07-12 04:54] LABS: HEMATOCRIT 40.1 % (36.0-47.0); HEMOGLOBIN 13.2 g/dL (12.0-15.5); MEAN CORPUSCULAR HEMOGLOBIN 27.8 pg (27.0-33.4); MEAN CORPUSCULAR HGB CONC 33.1 g/dL (32.0-36.0); MEAN CORPUSCULAR VOLUME 84 fl (80-97); PLATELET COUNT 237 10^3/uL (150-450); RED BLOOD COUNT 4.77 10^6/uL (3.72-5.28); RED CELL DISTRIBUTION WIDTH 14.3 % (11.5-14.0); WHITE BLOOD COUNT 6.5 10^3/uL (4.0-10.5)
[2017-07-12 05:15] LABS: ANION GAP 12 (5-19); BLOOD UREA NITROGEN 14 mg/dL (7-20); CALCIUM 9.1 mg/dL (8.4-10.2); CARBON DIOXIDE 27 mmol/L (22-30); CHLORIDE 106 mmol/L (98-107); CHOLESTEROL 196.92 mg/dL (0-200); GLUCOSE 109 mg/dL (75-110); POTASSIUM 4.3 mmol/L (3.6-5.0); SODIUM 144.7 mmol/L (137-145); TRIGLYCERIDES 256 mg/dL (<150)
[2017-07-12 05:19] LABS: INTERNATIONAL RATION (INR) 2.82
[2017-07-12 05:25] LABS: DIRECT LDL 107 mg/dL (<100)
[2017-07-12 05:30] LABS: VLDL CHOLESTEROL 51.2 mg/dL (10-31)
[2017-07-12] MEDS ORDERED: TOPIRAMATE 25 MG TABLET PO SCH (08:00)
[2017-07-12] MEDS: PANTOPRAZOLE SODIUM 40 MG VIAL IV SCH (09:42)
[2017-07-12] MEDS: ASPIRIN 81 MG TABLET, ENT COATED PO SCH (09:42)
[2017-07-12] MEDS: CARVEDILOL 12.5 MG TABLET PO SCH (09:45)
[2017-07-12] MEDS: BUMETANIDE 1 MG TABLET PO SCH (09:46)
[2017-07-12] MEDS ORDERED: PRAMIPEXOLE DI-HCL 0.5 MG TABLET PO SCH ×2 (10:00→22:00)
[2017-07-12] MEDS ORDERED: POTASSIUM CHLORIDE 10 MEQ TABLET.SA PO SCH (10:00)
[2017-07-12] MEDS ORDERED: WARFARIN SODIUM 4 MG TABLET PO SCH (10:00)
[2017-07-12] MEDS ORDERED: (PENDING PHARMACY ID) (Potassium Chloride [K-Tab Er] 20 MEQ) PO SCH (10:00)
[2017-07-12] MEDS ORDERED: (PENDING PHARMACY ID) (Warfarin Sodium 4 MG) PO SCH (13:08)
[2017-07-12 15:54] VITALS: BP 142/82
--- NOTE | 2017-07-12 16:02 | RADIOLOGY REPORT (SQ) ---
EXAM DESCRIPTION: CAROTID DOPPLER COMPLETED DATE/TIME: 07/12/2017 3:45 pm REASON FOR STUDY: TIA/CVA workup; Rt side weakness COMPARISON: None. TECHNIQUE: Grayscale ultrasound, Doppler velocity and spectra, and color Doppler images acquired of the extra-cranial carotid and vertebral arteries. Images stored on PACS. LIMITATIONS: None. FINDINGS: RIGHT CAROTID CCA Velocities: Within normal limits. ICA Velocities Peak systolic 0.72 m/s. End diastolic 0.22 m/s. Proximal ICA/CCA peak systolic ratio 0.9. Spectra normal. No significant plaque. LEFT CAROTID CCA Velocities: Within normal limits. ICA Velocities Peak systolic 0.55 m/s. End diastolic 0.16 m/s. Proximal ICA/CCA peak systolic ratio 1.7. Spectra normal. No significant plaque. VERTEBRAL ARTERIES: Antegrade flow. Normal waveforms. SUBCLAVIAN ARTERIES: Not imaged. OTHER: No other significant finding. IMPRESSION: NO HEMODYNAMICALLY SIGNIFICANT STENOSIS. COMMENT: Quality ID #[id number]: Velocity criteria are extrapolated from the diameter data as defined by t he Society of Radiologists in Ultrasound Consensus Conference. Radiology 2003: 229; 340-346. TECHNICAL DOCUMENTATION: JOB ID: [id number] [employer]- All Rights Reserved Reading location - IP/workstation name: [email or web address]
--- NOTE | 2017-07-12 16:53 | PDOC DISCHARGE SUMMARY ---
General - Admit/Disc Date/PCP Admission Date/Primary Care Provider: 07/11/17 09:47 GAGE MATOS MD Discharge Date: 07/12/17 - Discharge Diagnosis (1) TIA (transient ischemic attack) Is this a current diagnosis for this admission?: Yes Summary: Resolved. The patient was admitted with complaint of right lower extremity weakness which had nearly resolved at time of presentation to the Emergency Department.Symptoms were preceded by numbness and tingling to right fingers beginning approximately 3 days ago. She does report a history of TIA. Head CT is negative for acute stroke. Echocardiogram was completed at previous admission (05/25/17): Normal LVEF, mild diastolic dysfunction, borderline right ventricular enlargement with normal right ventricular systolic function. Head MRI negative for evidence of acute stroke. Brain MRI with MRA demonstrated normal [place]. Carotid Doppler is negative for hemodynamically significant stenosis. The patient remained in normal sinus rhythm while on continuous cardiac telemetry. Lipid panel and hemoglobin A1c were assessed. The patient was advised on lifestyle modification. Of note, the patient's urine drug screen was positive for cocaine. The patient denies illicit drug use. Physical therapy did evaluate the patient recommended that she receive continued outpatient physical therapy; patient declined to have this arranged at time of discharge. At time of discharge, the patient is in stable condition and her symptoms have resolved. She is advised to continue her outpatient Coumadin and statin therapy. She is instructed to follow-up with her primary care provider within 1 week. (2) Weakness of right lower extremity Is this a current diagnosis for this admission?: Yes Summary: Resolved. The patient was admitted with complaint of right lower extremity weakness which had nearly resolved at time of presentation to the Emergency Department. Symptoms were preceded by numbness and tingling to right fingers beginning approximately 3 days ago. Her extremity weakness was further evaluated with a lumbar MRI which showed facet arthropathy and right pseudoarthritis at L5-S1; no evidence of significant spinal stenosis. Physical therapy did evaluate the patient recommended that she receive continued outpatient physical therapy; patient declined to have this arranged at time of discharge. (3) Fall Is this a current diagnosis for this admission?: Yes Summary: Secondary to right lower extremity weakness; patient denied injury related to fall. 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 However, factor II deficiency is characterized by excessive bleeding after invasive procedures and the patient is noted to be on chronic Coumadin therapy. I would theorize that a Factor II deficiency would be a strong contraindication for anticoagulant medications. I believe the patient may be mistaken regarding her diagnosis. Urinalysis revealed a small amount of blood. Otherwise, she had no overt signs of bleeding; Hgb is 13.3, she is normotensive and not tachycardic. Her bilateral ankles and knees were examined; no edema or ecchymosis is present. Head CT is negative for intracranial hemorrhage. The patient may benefit from outpatient referral to hematology for clarification of clotting disorder. (5) CHF (congestive heart failure) Is this a current diagnosis for this admission?: Yes Summary: Echocardiogram from previous admission (05/2017) was reviewed. Echocardiogram demonstrated preserved ejection fraction with mild diastolic dysfunction. The patient has no evidence of fluid overload or acute exacerbation at this time. (6) HTN (hypertension) Is this a current diagnosis for this admission?: Yes Summary: The patient remained normotensive; recommended she resume her outpatient medication regiment at discharge. (7) GERD (gastroesophageal reflux disease) Is this a current diagnosis for this admission?: Yes (8) Tobacco dependence Is this a current diagnosis for this admission?: Yes Summary: Smoking cessation was strongly encouraged; she was provided nicotine replacement therapy. (9) DNR (do not resuscitate) Is this a current diagnosis for this admission?: Yes - Additional Information Resuscitation Status: Do Not Resuscitate Discharge Diet: Cardiac Discharge Activity: Activity As Tolerated, Balance Activity w/Rest, Slowly Increase Activity Home Medications: Albuterol Sulfate [Proair HFA] 2 puff IH Q4HP PRN 07/11/17 Bumetanide [Bumex 0.5 mg Tablet] 0.5 mg PO BID 07/11/17 Carvedilol [Coreg 25 mg Tablet] 25 mg PO BID 07/11/17 Eszopiclone [Lunesta] 3 mg PO HSP PRN 07/11/17 Gabapentin [Neurontin 300 mg Capsule] 600 mg PO Q12 07/11/17 Lisinopril [Zestril] 5 mg PO DAILY 07/11/17 Mometasone Furoate [Nasonex] 1 spray NASL DAILYP PRN 07/11/17 Mometasone/Formoterol [Dulera 100 Mcg/5 Mcg Inhaler] 2 puff IH BID 07/11/17 Montelukast Sodium [Singulair 10 mg Tablet] 10 mg PO QPM 07/11/17 Nicotine [Nicoderm 21 mg/24 Hr Transderm Patch] 1 patch TD DAILY 07/11/17 Potassium Chloride [K-Tab ER] 20 meq PO DAILY 07/11/17 Pramipexole Di-HCl [Mirapex 0.5 mg Tablet] 0.5 mg PO DAILY 07/11/17 Pravastatin Sodium [Pravachol] 10 mg PO QHS 07/11/17 Ranitidine HCl [Zantac 150 mg Tablet] 150 mg PO DAILY 07/11/17 Tizanidine HCl [Zanaflex] 2 mg PO QHS 07/11/17 Topiramate [Topamax 100 mg Tablet] 100 mg PO QPM 07/11/17 Topiramate [Topamax] 50 mg PO QAM 07/11/17 Venlafaxine HCl ER [Effexor Xr 75 mg Cap.sr] 75 mg PO DAILY 07/11/17 Venlafaxine HCl [Effexor Xr] 150 mg PO DAILY 07/11/17 Warfarin Sodium [Coumadin 4 mg Tablet] 4 mg PO SUMOWEFR 07/11/17 Warfarin Sodium [Coumadin 5 mg Tablet] 5 mg PO TUTHSA 07/11/17 Aspirin [Ecotrin 81 mg EC Tablet] 81 mg PO DAILY tabec 07/12/17 History of Present Illness History of Present Illness: KAMARI BOONE is a 51 year old female with a complex medical history including a factor II clotting disorder who is chronically anticoagulated on Coumadin, TIA/ CVA, HI, CHF, pulmonary hypertension, hyperlipidemia, hypertension, seizure disorder, COPD, chronic kidney disease, migraines, and fibromyalgia who presented to the emergency room today with a complaint of right-sided weakness. The patient reports that she noticed numbness and tingling to her right fingertips approximately 3 days ago. She states that she had no other symptoms until last night when she woke around midnight. She states that she was sleeping in the recliner and got up to move to her bedroom when her right leg gave out on her. She went back to sleep and upon waking this morning found that she continued to have right upper and lower extremity paresthesia and weakness. She drove herself to the emergency department for further evaluation. Workup in the emergency department is essentially benign. INR is mildly supratherapeutic at 3.01, sodium of 145.1. CT of the head was negative for evidence of acute CVA. She is referred to the hospitalist service for observational admission and workup of TIA/CVA. Physical Exam Vital Signs: Temp Pulse Resp BP Pulse Ox 98.0 F 64 16 121/77 98 07/12/17 08:34 07/12/17 08:34 07/12/17 08:34 07/12/17 08:34 07/12/17 08:34 Intake & Output 07/11/17 07/12/17 07/13/17 06:59 06:59 06:59 Intake Total 1410 Balance 1410 Weight 117.6 kg General appearance: PRESENT: no acute distress, obese, well-developed, well- nourished Head exam: PRESENT: atraumatic, normocephalic Eye exam: PRESENT: conjunctiva pink, EOMI, PERRLA. ABSENT: scleral icterus Ear exam: PRESENT: normal external ear exam Mouth exam: PRESENT: moist, tongue midline Neck exam: ABSENT: carotid bruit, JVD, lymphadenopathy, thyromegaly Respiratory exam: PRESENT: clear to auscultation mary, symmetrical, unlabored. ABSENT: rales, rhonchi, wheezes Cardiovascular exam: PRESENT: RRR, +S1, +S2. ABSENT: diastolic murmur, rubs, systolic murmur Pulses: PRESENT: normal dorsalis pedis pul Vascular exam: PRESENT: normal capillary refill GI/Abdominal exam: PRESENT: normal bowel sounds, soft. ABSENT: distended, guarding, mass, organolmegaly, rebound, tenderness Rectal exam: PRESENT: deferred Extremities exam: PRESENT: full ROM. ABSENT: calf tenderness, clubbing, pedal edema Musculoskeletal exam: PRESENT: ambulatory Neurological exam: PRESENT: alert, awake, oriented to person, oriented to place , oriented to time, oriented to situation, CN II-XII grossly intact. ABSENT: motor sensory deficit Psychiatric exam: PRESENT: appropriate affect, normal mood. ABSENT: homicidal ideation, suicidal ideation Skin exam: PRESENT: dry, intact, warm. ABSENT: cyanosis, rash Results Laboratory Results: 07/12/17 04:41 07/12/17 04:41 07/12/17 07/12/17 04:41 04:41 WBC 6.5 RBC 4.77 Hgb 13.2 Hct 40.1 MCV 84 MCH 27.8 MCHC 33.1 RDW 14.3 H Plt Count 237 Sodium 144.7 Potassium 4.3 Chloride 106 Carbon Dioxide 27 Anion Gap 12 BUN 14 Creatinine 1.42 H Est GFR ( Amer) 47 L Est GFR (Non-Af Amer) 39 L Glucose 109 Calcium 9.1 Triglycerides 256 H Cholesterol 196.92 LDL Cholesterol Direct 107 H VLDL Cholesterol 51.2 H HDL Cholesterol 44 Impressions: Brain MRI with MRA 07/11/17 00:00 IMPRESSION: NORMAL MRA OF [place]. Head MRI 07/11/17 00:00 IMPRESSION: NORMAL MRI OF THE BRAIN WITHOUT INTRAVENOUS GADOLINIUM CONTRAST. EVIDENCE OF ACUTE STROKE: NO. Lumbar Spine MRI 07/11/17 00:00 IMPRESSION: Facet arthropathy. Right pseudoarthrosis at L5-S1. Chest X-Ray 07/11/17 06:42 IMPRESSION: NO ACUTE RADIOGRAPHIC FINDING IN THE CHEST. Head CT 07/11/17 06:42 IMPRESSION: No intracranial hemorrhage or evidence of acute stroke. Incidental finding of slightly prominent pituitary gland. See above discussion. EVIDENCE OF ACUTE STROKE: NO. Qualifiers - * PATIENT BEING DISCHARGED WITH ANY OF THE FOLLOWING DIAGNOSIS: No Stroke Pt being discharged on Anti-coagulation therapy?: Yes Stroke Pt being discharged on Statins?: Yes Plan Discharge Plan: Discharge to home with self-care; patient declines home health PT/OT. Follow-up with primary care provider within 1 week. Time Spent: Less than 30 Minutes
[2017-07-13] MEDS ORDERED: WARFARIN SODIUM 5 MG TABLET PO SCH (10:00)
== END 2017-07-12 16:10 | disposition home or self-care (01) ==
LOC: ER 06:31 → EH 09:47 → 3W 13:00
PROVIDERS: ADMIT Family Medicine; ATTEND Family Medicine
PROC: HZ31ZZZ Individual Counseling for Substance Abuse Treatment, Behavioral (ICD-10-PCS; principal; 2017-07-11)
DX: G45.9 Transient cerebral ischemic attack, unspecified (principal); R53.1 Weakness; W19.XXXA Unspecified fall, initial encounter; D68.2 Hereditary deficiency of other clotting factors; I11.0 Hypertensive heart disease with heart failure; I13.0 Hypertensive heart and chronic kidney disease with heart failure and stage 1 through stage 4 chronic kidney disease, or unspecified chronic kidney disease; N18.9 Chronic kidney disease, unspecified; I50.32 Chronic diastolic (congestive) heart failure; R78.2 Finding of cocaine in blood; K21.9 Gastro-esophageal reflux disease without esophagitis; I25.2 Old myocardial infarction; F17.210 Nicotine dependence, cigarettes, uncomplicated; M46.86 Other specified inflammatory spondylopathies, lumbar region; Z82.49 Family history of ischemic heart disease and other diseases of the circulatory system; S32.9XXK Fracture of unspecified parts of lumbosacral spine and pelvis, subsequent encounter for fracture with nonunion; X58.XXXD Exposure to other specified factors, subsequent encounter; Z79.02 Long term (current) use of antithrombotics/antiplatelets; Z66 Do not resuscitate; Z79.899 Other long term (current) drug therapy; Z79.82 Long term (current) use of aspirin
CPT/HCPCS: 93005; 99285; 36415 ×2; 82553; 82962; 82550; 85025; 85027; 85610 ×2; 85730; 80048; 80053; 81001; 84484; 80307; 83036; 80061; 93880; 70551; 72148; 70544; 71045; 70450; 93010; 97110; 97116; 97163; 99406; J3490 ×8; S0164 ×2